=== PATIENT | female | born 1990 | race African-American/Black ===

== ENCOUNTER 2016-09-15 13:05 | Emergency (ER) | payer MEDICAID ==
--- NOTE | 2016-09-15 13:13 | ER Document Report ---
ED Medical Screen (RME) - General Stated Complaint: STOMACH PAIN Notes: 25 yo female c/o n/v/d x 2 days. + headache, + dizziness x 1 week. family members with similar viral symptoms. no fever. no significant PMHx. LMP pt in NAD. abdomen soft and nontender TRAVEL OUTSIDE OF THE [place] IN LAST 30 DAYS: No - Related Data Allergies/Adverse Reactions: No Known Drug Allergies Allergy (Verified 05/02/16 10:21) Past Medical History Pulmonary Medical History: Reports: Hx Asthma Neurological Medical History: Reports: Hx Migraine - Immunizations Hx Diphtheria, Pertussis, Tetanus Vaccination: No
[2016-09-15 13:16] VITALS: BP 121/77
[2016-09-15 14:07] LABS: APPEARANCE,URINE SLIGHTLY-CLOUDY; BILIRUBIN,URINE NEGATIVE (NEGATIVE); GLUCOSE, URINE NEGATIVE (NEGATIVE); KETONES,URINE NEGATIVE (NEGATIVE); LEUKOCYTE ESTERASE,URINE NEGATIVE (NEGATIVE); NITRITE,URINE NEGATIVE (NEGATIVE); PROTEIN,URINE NEGATIVE (NEGATIVE); URINE SPECIFIC GRAVITY 1.021; UROBILINOGEN,URINE NEGATIVE mg/dL (<2.0)
[2016-09-15 14:20] LABS: ABSOLUTE EOSINOPHILS # (AUTO) 0.1 10^3/uL (0.0-0.6); ABSOLUTE LYMPHOCYTES (AUTO) 1.5 10^3/uL (0.5-4.7); ABSOLUTE MONOCYTES (AUTO) 0.5 10^3/uL (0.1-1.4); ABSOLUTE NEUT (AUTO) 3.4 10^3/uL (1.7-8.2); BASOPHILS % (AUTO) 0.5 % (0-2); EOSINOPHILS % (AUTO) 2.3 % (0-6); HEMATOCRIT 41.2 % (36.0-47.0); HGB HCT DIFFERENCE 0.8; LYMPHOCYTES % (AUTO) 27.2 % (13-45); MEAN CORPUSCULAR HEMOGLOBIN 27.8 pg (27.0-33.4); MEAN CORPUSCULAR VOLUME 82 fl (80-97); MONOCYTES % (AUTO) 9.4 % (3-13); RED BLOOD COUNT 5.04 10^6/uL (3.72-5.28); RED CELL DISTRIBUTION WIDTH 13.6 % (11.5-14.0); SEGMENTED NEUTROPHILS % (AUTO) 60.6 % (42-78); WHITE BLOOD COUNT 5.5 10^3/uL (4.0-10.5)
[2016-09-15 14:30] LABS: ALANINE AMINOTRANSFERASE 44 U/L (9-52); ALBUMIN 4.3 g/dL (3.5-5.0); ALKALINE PHOSPHATASE 81 U/L (38-126); ANION GAP 12 (5-19); ASPARTATE AMINO TRANSFERASE 32 U/L (14-36); BILIRUBIN,TOTAL 0.5 mg/dL (0.2-1.3); BLOOD UREA NITROGEN 14 mg/dL (7-20); CARBON DIOXIDE 22 mmol/L (22-30); CHLORIDE 102 mmol/L (98-107); CREATININE RESULT 0.65 mg/dL (0.52-1.25); GLUCOSE 97 mg/dL (75-110); POTASSIUM 4.9 mmol/L (3.6-5.0); SODIUM 135.5 mmol/L (137-145); TOTAL PROTEIN 8.1 g/dL (6.3-8.2)
--- NOTE | 2016-09-15 15:00 | ER Document Report ---
ED General - General Chief Complaint: Flu Symptoms Stated Complaint: STOMACH PAIN Mode of Arrival: Ambulatory Information source: Patient Notes: 25-year-old female history of migraine headaches presents with complaint of headache associated with nausea vomiting. Patient denies any fevers or chills. Denies any earaches sore throat cough congestion. Patient notes she has sensitivity to light. Patient notices similar to her previous migraine headaches. TRAVEL OUTSIDE OF THE [place] IN LAST 30 DAYS: No - HPI Onset: Other Onset/Duration: Persistent Quality of pain: Achy Severity: Mild Pain Level: 1 Associated symptoms: Headache, Nausea, Vomiting Exacerbated by: Denies Relieved by: Denies Similar symptoms previously: Yes Recently seen / treated by doctor: Yes - Related Data Allergies/Adverse Reactions: No Known Drug Allergies Allergy (Verified 05/02/16 10:21) Past Medical History - Social History Smoking Status: Never Smoker Cigarette use (# per day): No Chew tobacco use (# tins/day): No Smoking Education Provided: No Frequency of alcohol use: Social Drug Abuse: None Family History: Reviewed & Not Pertinent Patient has suicidal ideation: No Patient has homicidal ideation: No Pulmonary Medical History: Reports: Hx Asthma Neurological Medical History: Reports: Hx Migraine Renal/ Medical History: Denies: Hx Peritoneal Dialysis - Immunizations Hx Diphtheria, Pertussis, Tetanus Vaccination: No Review of Systems - Review of Systems Notes: REVIEW OF SYSTEMS: CONSTITUTIONAL : Denies fever, chills, or sweats. Denies recent illness. EENT: Denies eye, ear, throat, or mouth pain or symptoms. Denies nasal or sinus congestion or discharge. Denies throat, tongue, or mouth swelling or difficulty swallowing. CARDIOVASCULAR: Denies chest pain. Denies palpitations or racing or irregular heart beat. Denies ankle edema. RESPIRATORY: Denies cough, cold, or chest congestion. Denies shortness of breath, difficulty breathing, or wheezing. GASTROINTESTINAL: Admits to nausea vomiting GENITOURINARY: Denies difficulty urinating, painful urination, burning, frequency, blood in urine, or discharge. FEMALE GENITOURINARY: Denies vaginal bleeding, heavy or abnormal periods, irregular periods. Denies vaginal discharge or odor. MUSCULOSKELETAL: Denies back or neck pain or stiffness. Denies joint pain or swelling. SKIN: Denies rash, lesions or sores. HEMATOLOGIC : Denies easy bruising or bleeding. LYMPHATIC: Denies swollen, enlarged glands. NEUROLOGICAL: Admits to headache PSYCHIATRIC: Denies anxiety or stress. Denies depression, suicidal ideation, or homicidal ideation. ALL OTHER SYSTEMS REVIEWED AND NEGATIVE. Dictation was performed using [employer] voice recognition software PHYSICAL EXAMINATION: GENERAL: Well-appearing, well-nourished and in no acute distress. HEAD: Atraumatic, normocephalic. EYES: Pupils equal round and reactive to light, extraocular movements intact, conjunctiva are normal. ENT: Nares patent, oropharynx clear without exudates. Moist mucous membranes. NECK: Normal range of motion, supple without lymphadenopathy LUNGS: Breath sounds clear to auscultation bilaterally and equal. No wheezes rales or rhonchi. HEART: Regular rate and rhythm without murmurs ABDOMEN: Soft, nontender, nondistended abdomen. No guarding, no rebound. No masses appreciated. Female : deferred Musculoskeletal: Normal range of motion, no pitting or edema. No cyanosis. NEUROLOGICAL: Cranial nerves grossly intact. Normal speech, normal gait. Normal sensory, motor exams finger to nose [id number] are normal PSYCH: Normal mood, normal affect. SKIN: Warm, Dry, normal turgor, no rashes or lesions noted. Physical Exam - Vital signs Vitals: Temp Pulse Resp BP Pulse Ox 98.2 F 98 18 121/77 97 09/15/16 13:12 09/15/16 13:12 09/15/16 13:12 09/15/16 13:12 09/15/16 13:12 Course - Re-evaluation Re-evalutation: 09/15/16 15:09 Physical examination notes no significant abnormality lab works normal. Please the patient has migraine headache which is consistent with her previous history. Patient denies any other complaints at this time. I offered to treat the patient here but she prefers to be discharged home. Discharge instructions and should return precautions have been provided to the patient After performing a Medical Screening Examination, I estimate there is LOW risk for ACUTE GLAUCOMA, TEMPORAL ARTERITIS, MENINGITIS, INCRANIAL HEMORRHAGE, or ISCHEMIC STROKE thus I consider the discharge disposition reasonable. The patient and I have discussed the diagnosis and risks, and we agree with discharging home with close follow-up with the understanding that symptoms and presentations can change. We also discussed returning to the Emergency Department immediately if new or worsening symptoms occur. We have discussed the symptoms which are most concerning (e.g., changing or worsening symptoms, new numbness or weakness, vomiting, fever) that necessitate immediate return. - Vital Signs Vital signs: Temp Pulse Resp BP Pulse Ox 98.2 F 98 18 121/77 97 09/15/16 13:12 09/15/16 13:12 09/15/16 13:12 09/15/16 13:12 09/15/16 13:12 - Laboratory Result Diagrams: 09/15/16 14:00 09/15/16 14:00 Laboratory results interpreted by me: 09/15/16 14:00 Sodium 135.5 L - Diagnostic Test Radiology reviewed: Image reviewed, Reports reviewed Discharge - Discharge Clinical Impression: Migraine headache Qualifiers: Migraine type: with aura Status migrainosus presence: without status migrainosus Intractability: not intractable Qualified Code(s): G43.109 - Migraine with aura, not intractable, without status migrainosus Nausea & vomiting Qualifiers: Vomiting type: unspecified Vomiting Intractability: non-intractable Qualified Code(s): R11.2 - Nausea with vomiting, unspecified Condition: Stable Disposition: HOME, SELF-CARE Instructions: Migraine Headache ([facility]) Additional Instructions: Follow up with your physician tomorrow for further care or return to the ED IMMEDIATELY if symptoms worsen or new concerns occur Prescriptions: Promethazine HCl [Phenergan 25 mg Tablet] 1 - 2 tab PO Q6H PRN #15 tablet PRN Reason:
== END 2016-09-15 15:18 | disposition home or self-care (01) ==
LOC: ER 13:05
DX: G43.109 Migraine with aura, not intractable, without status migrainosus (principal); R11.2 Nausea with vomiting, unspecified; R10.9 Unspecified abdominal pain; R51 Headache
CPT/HCPCS: 36415; 80053; 81001; 81025; 85025; 87804; 99283

== ENCOUNTER 2016-10-27 08:33 | Outpatient (CLI) | payer MEDICAID ==
[2016-10-27 09:17] LABS: APPEARANCE,URINE SLIGHTLY-CLOUDY; BILIRUBIN,URINE NEGATIVE (NEGATIVE); GLUCOSE, URINE NEGATIVE (NEGATIVE); KETONES,URINE NEGATIVE (NEGATIVE); LEUKOCYTE ESTERASE,URINE NEGATIVE (NEGATIVE); NITRITE,URINE NEGATIVE (NEGATIVE); PROTEIN,URINE NEGATIVE (NEGATIVE); UROBILINOGEN,URINE NEGATIVE mg/dL (<2.0)
[2016-10-27 09:33] LABS: URINE BARBITURATES SCREEN NEGATIVE; URINE METHADONE SCREEN NEGATIVE; URINE OPIATES LOW NEGATIVE; URINE PHENCYCLIDINE SCREEN NEGATIVE
--- NOTE | 2016-10-27 10:46 | L&D General Admission ---
General Admit Datetime Report Generated by CPN: 10/27/2016 10:45 INFORMATION Patient Age: 25 (10/27/2016 08:33:QS system process) EDC: 03/10/2017 00:00 (10/27/2016 08:46:Maira Avery, RN) CARE Height (in): 62 (10/27/2016 09:47:QS system process) Height (in): 62 (10/27/2016 09:40:QS system process) ALLERGIES Medication Allergies: No Known Drug Allergies (05/02/2016) (10/27/2016 08:33:QS system process) DEMOGRAPHICS Address: [address] [place] [address] (10/27/2016 08:40:QS system process) Address: [facility] [place] [address] (10/27/2016 08:33:QS system process) Zipcode: [address] (10/27/2016 08:33:QS system process) Home (10/27/2016 08:33:QS system process) SSN: [id number] (10/27/2016 08:33:QS system process) Next of Kin Name: EDIN DEE (10/27/2016 08:33:QS system process) Next of Kin (10/27/2016 08:33:QS system process) Next of Kin Relationship: OR (10/27/2016 08:33:QS system process) Date of : 1990 (10/27/2016 08:33:QS system process) Marital Status: Single (10/27/2016 08:33:QS system process) Sex: Female (10/27/2016 08:33:QS system process) Race: (10/27/2016 08:33:QS system process) Ethnicity: Non- or (10/27/2016 08:33:QS system process) Church: None (10/27/2016 08:33:QS system process)
--- NOTE | 2016-10-27 10:46 | L&D Discharge Summary ---
OB Discharge Summary Datetime Report Generated by CPN: 10/27/2016 10:45 DISCHARGE DIAGNOSIS Diagnosis/Symptoms: Other Diagnoses/Symptoms Other: Not DIET/ACTIVITY/RESTRICTIONS Diet: Regular Activity: Normal Activity TEACHING/INSTRUCTIONS/REFERRALS Instructions Given To: Patient Instructions Understood: Patient Verbalized Understanding; Support Person Verbalized Understanding Referrals: None DISCHARGE INFORMATION Discharged AMA: No Discharge Date/Time: 10/27/2016 10:26 Discharged To: Home Discharge Provider Name: Dr. Kramer Accompanied By: self Discharge Method: Ambulatory Condition: Stable FOLLOW UP INFORMATION Follow Up With: Other-Annotate Comments: Pt. transferred to ED for evaluation of back and neck pain.
--- NOTE | 2016-10-27 10:46 | L&D Admission Assessment ---
LD ADM ASMT Datetime Report Generated by CPN: 10/27/2016 10:45 PATIENT ASSESSMENT Assessment Type: Admission Assessment (10/27/2016 08:58:Amira AveryNANCY) WEIGHT Weight (lb): 141 (10/27/2016 09:47:QS system process) Weight (lb): 141 (10/27/2016 09:40:QS system process) Weight (kg): 64.1 (10/27/2016 09:47:QS system process) Weight (kg): 64.1 (10/27/2016 09:40:QS system process) BMI: 25.8 (10/27/2016 09:47:QS system process) PAIN Pain Scale: 0 (10/27/2016 09:32:Amira Avery RN) Pain Scale: 0 (10/27/2016 08:58:Amira Avery RN) Pain Presence: None/Denies (10/27/2016 09:32:Amira Avery RN) Pain Presence: None/Denies (10/27/2016 08:58:Amira Avery RN) Pain Type: N/A (10/27/2016 09:32:Amira Avery RN) Pain Type: N/A (10/27/2016 08:58:Amira Avery RN) Pain Goal: 0 (10/27/2016 08:58:Amira Avery RN) NEURO Level of Consciousness: Fully Conscious (10/27/2016 08:58:Amira Avery RN) DTR's/Clonus: DTRs Absent (10/27/2016 08:58:Amira Avery RN) Headache: Denies (10/27/2016 08:58:Amira Avery RN) Dizziness: No (10/27/2016 08:58:Amira Avery RN) Blurred Vision: No (10/27/2016 08:58:Amira Avery RN) Extremity Numbness/Tingling : Right Arm; Left Arm; Right Leg; Left Leg (Annotations: Tingling and swelling in face at 2am) (10/27/2016 08:58:Amira Avery RN) Extremity Movement: Full Range of Motion (10/27/2016 08:58:Amira Avery RN) CARDIOVASCULAR Heart Rhythm: Regular (10/27/2016 08:58:Amira Avery RN) Nailbeds: [place] (10/27/2016 08:58:Amira Avery RN) Capillary Refill: Less than 3 Seconds (10/27/2016 08:58:Amira Avery RN) Lower Extremities Edema: None (10/27/2016 08:58:Amira Avery RN) Lower Extremities Edema Degree: None (10/27/2016 08:58:Amira Avery RN) Upper Extremities Edema: None (10/27/2016 08:58:Amira Avery RN) Upper Extremities Edema Degree: None (10/27/2016 08:58:Amira Avery RN) Facial Edema: None (Annotations: Stated her face was swollen this morning) (10/27/2016 08:58:Amira Avery RN) Alissa's Sign Left Leg: Negative (10/27/2016 08:58:Amira Avery RN) Alissa's Sign Right Leg: Negative (10/27/2016 08:58:Amira Avery RN) DVT RISK ASSESSMENT DVT Risk Age: Age less than 41 years (10/27/2016 08:58:Amira Avery RN) DVT Risk BMI: BMI<31 (10/27/2016 08:58:Amira Avery RN) DVT Risk Surgery: None Applicable (10/27/2016 08:58:Amira Avery RN) DVT Risk Other: None Applicable (10/27/2016 08:58:Amira Avery RN) DVT Risk Total: 0 (10/27/2016 08:58:QS system process) DVT Risk Text: Low Risk (<10%) No specific measures, early ambulation (10/27/2016 08:58:QS system process) RESPIRATORY Respiratory Effort: Unlabored; Regular Rhythm; Equal Expansion (10/27/2016 08:58:Amira Avery RN) Breath Sounds, Left: Clear and Equal (10/27/2016 08:58:Amira Avery RN) Breath Sounds, Right: Clear and Equal (10/27/2016 08:58:Amira Avery, RN) Cough Productivity: None (10/27/2016 08:58:Amira Avery RN) GASTROINTESTINAL Nausea/Vomiting: Hx of Nausea/Vomiting (10/27/2016 08:58:Amira Avery RN) Bowel Sounds: Normoactive (10/27/2016 08:58:Amira Avery RN) RUQ Epigastric Pain: Denies (10/27/2016 08:58:Amira Avery RN) Bowel Patterns: Constipation (10/27/2016 08:58:Amira Avery RN) Hemorrhoids: None (10/27/2016 08:58:Amira Avery RN) Diet Type: Regular diet (10/27/2016 08:58:Amira Avery RN) Last Meal: 10/26/2016 10:30 (10/27/2016 08:58:Amira Avery RN) GENITOURINARY Bladder: Nondistended (10/27/2016 08:58:Amira Avery RN) Frequency of Urination: No (10/27/2016 08:58:Amira Avery RN) Urination Burning: No (10/27/2016 08:58:Amira Avery RN) CVA Tenderness: No (10/27/2016 08:58:Amira Avery RN) Vaginal Bleeding: Bleeding like a period last week. Saturated 7 pads a day (10/27/2016 08:58:Amira Avery RN) Vaginal Discharge Amount: None (10/27/2016 08:58:Amira Avery RN) Vaginal Discharge Color: N/A (10/27/2016 08:58:Amira Avery RN) Vaginal Discharge Odor: Non-Odorous (10/27/2016 08:58:Amira Avery RN) Vaginal Discharge Character: None (10/27/2016 08:58:Amira Avery RN) INTEGUMENTARY Skin Color: Normal for Race (10/27/2016 08:58:Amira Avery RN) Skin Temperature: Warm (10/27/2016 08:58:Amira Avery RN) Skin Moisture: Dry (10/27/2016 08:58:Amira Avery RN) SUPPORT Family Support: Family not supportive (10/27/2016 08:58:Amira Avery RN) Emotional State: Anxious (10/27/2016 08:58:Amira Avery RN) SAFETY Call [place] Within Reach: Yes (10/27/2016 08:58:Amira Avery RN) Side Rails Up: Yes (10/27/2016 08:58:Amira Avery RN) Bed Wheels Locked: Yes (10/27/2016 08:58:Amira Avery RN) Arm Bands Present: Yes (10/27/2016 08:58:Amira Avery RN) Isolation: [place] (10/27/2016 08:58:Amira Avery RN) FALL SCREEN Fall Risk History of Falling: (0) No (10/27/2016 08:58:Amira Avery RN) Fall Risk Secondary Diagnosis: (0) No (10/27/2016 08:58:Amira Avery RN) Fall Risk Ambulatory Aid: (0) None/Bedrest/Wheelchair/Nurse Assist (10/27/2016 08:58:Amira Avery RN) Fall Risk IV Therapy: (0) No (10/27/2016 08:58:Amira Avery RN) Fall Risk Gait: (0) Normal/Bedrest/Immobile (10/27/2016 08:58:Amira Avery RN) Fall Risk Mental Status: (0) Oriented to Own Ability (10/27/2016 08:58:Amira Avery RN) Fall Risk Score: 0 (10/27/2016 08:58:QS system process) Fall Risk Score Definition: No Risk: No action required (10/27/2016 08:58:QS system process) ADDITIONAL COMMENTS Assessment Flag: Admission Assessment (10/27/2016 08:58:QS system process)
--- NOTE | 2016-10-27 10:46 | Antepartum Discharge Summary ---
Antepartum DC Datetime Report Generated by CPN: 10/27/2016 10:45 DIET/ACTIVITY/RESTRICTIONS Diet: Regular (10/27/2016 10:30:Amira Avery RN) Activity: Normal Activity (10/27/2016 10:30:Amira Avery, RN) TEACHING/INSTRUCTIONS/REFERRALS Instructions Given To: Patient (10/27/2016 10:30:Amira Avery RN) Instructions Understood: Patient Verbalized Understanding; Support Person Verbalized Understanding (10/27/2016 10:30:Amira Avery RN) Referrals: None (10/27/2016 10:30:Amira Avery RN) DISCHARGE INFORMATION Discharged AMA: No (10/27/2016 10:30:Amira Avery RN) Discharge Date/Time: 10/27/2016 10:26 (10/27/2016 10:30:Amira Avery RN) Discharged To: Home (10/27/2016 10:30:Amira Avery RN) Discharge Provider Name: Dr. Kramer (10/27/2016 10:30:Amira Avery RN) Accompanied By: self (10/27/2016 10:30:Amira Avery RN) Discharge Method: Ambulatory (10/27/2016 10:30:Amira Avery RN) Condition: Stable (10/27/2016 10:30:Amira Avery RN) FOLLOW UP INFORMATION Follow Up With: Other-Annotate (10/27/2016 10:30:Amira Avery RN) Comments: Pt. transferred to ED for evaluation of back and neck pain. (10/27/2016 10:30:Amira Avery RN)
--- NOTE | 2016-10-27 10:46 | L&D Current Admission ---
Current Admit Datetime Report Generated by CPN: 10/27/2016 10:45 ADMISSION INFORMATION Chief Complaint: Vaginal Bleeding (10/27/2016 08:58:Amira Avery RN)
--- NOTE | 2016-10-27 12:28 | L&D Discharge Summary ---
OB Discharge Summary Datetime Report Generated by CPN: 10/27/2016 12:27 DISCHARGE DIAGNOSIS Diagnosis/Symptoms: Other Diagnoses/Symptoms Other: Not DIET/ACTIVITY/RESTRICTIONS Diet: Regular Activity: Normal Activity TEACHING/INSTRUCTIONS/REFERRALS Instructions Given To: Patient Instructions Understood: Patient Verbalized Understanding; Support Person Verbalized Understanding Referrals: None DISCHARGE INFORMATION Discharged AMA: No Discharge Date/Time: 10/27/2016 10:26 Discharged To: Home Discharge Provider Name: Dr. Kramer Accompanied By: self Discharge Method: Ambulatory Condition: Stable FOLLOW UP INFORMATION Follow Up With: Other-Annotate Comments: Pt. transferred to ED for evaluation of back and neck pain.
--- NOTE | 2016-10-27 16:45 | L&D Current Admission ---
Current Admit Datetime Report Generated by CPN: 10/27/2016 16:45 ADMISSION INFORMATION Chief Complaint: Vaginal Bleeding (10/27/2016 08:58:Amira Avery RN)
--- NOTE | 2016-10-27 16:45 | L&D Discharge Summary ---
OB Discharge Summary Datetime Report Generated by CPN: 10/27/2016 16:45 DISCHARGE DIAGNOSIS Diagnosis/Symptoms: Other Diagnoses/Symptoms Other: Not Gestation: 20.6 DIET/ACTIVITY/RESTRICTIONS Diet: Regular Activity: Normal Activity TEACHING/INSTRUCTIONS/REFERRALS Instructions Given To: Patient Instructions Understood: Patient Verbalized Understanding; Support Person Verbalized Understanding Referrals: None DISCHARGE INFORMATION Discharged AMA: No Discharge Date/Time: 10/27/2016 10:26 Discharged To: Home Discharge Provider Name: Dr. Kramer Accompanied By: self Discharge Method: Ambulatory Condition: Stable FOLLOW UP INFORMATION Follow Up With: Other-Annotate Comments: Pt. transferred to ED for evaluation of back and neck pain.
--- NOTE | 2016-10-27 16:45 | Antepartum Discharge Summary ---
Antepartum DC Datetime Report Generated by CPN: 10/27/2016 16:45 DIET/ACTIVITY/RESTRICTIONS Diet: Regular (10/27/2016 10:30:Amira Avery RN) Activity: Normal Activity (10/27/2016 10:30:Amira Avery, RN) TEACHING/INSTRUCTIONS/REFERRALS Instructions Given To: Patient (10/27/2016 10:30:Amira Avery RN) Instructions Understood: Patient Verbalized Understanding; Support Person Verbalized Understanding (10/27/2016 10:30:Amira Avery RN) Referrals: None (10/27/2016 10:30:Amira Avery RN) DISCHARGE INFORMATION Discharged AMA: No (10/27/2016 10:30:Amira Avery RN) Discharge Date/Time: 10/27/2016 10:26 (10/27/2016 10:30:Amira Avery RN) Discharged To: Home (10/27/2016 10:30:Amira Avery RN) Discharge Provider Name: Dr. Kramer (10/27/2016 10:30:Amira Avery RN) Accompanied By: self (10/27/2016 10:30:Amira Avery RN) Discharge Method: Ambulatory (10/27/2016 10:30:Amira Avery RN) Condition: Stable (10/27/2016 10:30:Amira Avery RN) FOLLOW UP INFORMATION Follow Up With: Other-Annotate (10/27/2016 10:30:Amira Avery RN) Comments: Pt. transferred to ED for evaluation of back and neck pain. (10/27/2016 10:30:Amira Avery RN)
--- NOTE | 2016-10-27 16:45 | L&D General Admission ---
General Admit Datetime Report Generated by CPN: 10/27/2016 16:45 INFORMATION Patient Age: 25 (10/27/2016 08:33:QS system process) EDC: 03/10/2017 00:00 (10/27/2016 08:46:Amira Avery, RN) CARE Height (in): 62 (10/27/2016 09:47:QS system process) Height (in): 62 (10/27/2016 09:40:QS system process) ALLERGIES Medication Allergies: No Known Drug Allergies (05/02/2016) (10/27/2016 08:33:QS system process) DEMOGRAPHICS Address: [address] [place] [address] (10/27/2016 08:40:QS system process) Address: [facility] [place] [place] [address] (10/27/2016 08:33:QS system process) Zipcode: [address] (10/27/2016 08:33:QS system process) Home (10/27/2016 08:33:QS system process) SSN: [id number] (10/27/2016 08:33:QS system process) Next of Kin Name: EDIN DEE (10/27/2016 08:33:QS system process) Next of Kin (10/27/2016 08:33:QS system process) Next of Kin Relationship: OR (10/27/2016 08:33:QS system process) Date of : 1990 (10/27/2016 08:33:QS system process) Marital Status: Single (10/27/2016 08:33:QS system process) Sex: Female (10/27/2016 08:33:QS system process) Race: (10/27/2016 08:33:QS system process) Ethnicity: Non- or (10/27/2016 08:33:QS system process) Scientology: None (10/27/2016 08:33:QS system process)
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
--- NOTE | 2016-10-27 22:45 | Antepartum Discharge Summary ---
Antepartum DC Datetime Report Generated by CPN: 10/27/2016 22:45 DIET/ACTIVITY/RESTRICTIONS Diet: Regular (10/27/2016 10:30:Amira Avery RN) Activity: Normal Activity (10/27/2016 10:30:Amira Avery, RN) TEACHING/INSTRUCTIONS/REFERRALS Instructions Given To: Patient (10/27/2016 10:30:Amira Avery RN) Instructions Understood: Patient Verbalized Understanding; Support Person Verbalized Understanding (10/27/2016 10:30:mAira Avery RN) Referrals: None (10/27/2016 10:30:Amira Avery RN) DISCHARGE INFORMATION Discharged AMA: No (10/27/2016 10:30:Amira Avery RN) Discharge Date/Time: 10/27/2016 10:26 (10/27/2016 10:30:Amira Avery RN) Discharged To: Home (10/27/2016 10:30:Amira Avery RN) Discharge Provider Name: Dr. Kramer (10/27/2016 10:30:Amira Avery RN) Accompanied By: self (10/27/2016 10:30:Amira Avery RN) Discharge Method: Ambulatory (10/27/2016 10:30:Amira Avery RN) Condition: Stable (10/27/2016 10:30:Amira Avery RN) FOLLOW UP INFORMATION Follow Up With: Other-Annotate (10/27/2016 10:30:Amira Avery RN) Comments: Pt. transferred to ED for evaluation of back and neck pain. (10/27/2016 10:30:Amira Avery RN)
--- NOTE | 2016-10-27 22:45 | L&D Flow Sheet ---
LD Flowsheet Datetime Report Generated by CPN: 10/27/2016 22:45 Datetime: 10/27/2016 10:08 Communication LaborFlag: Antepartum (QS system process) Datetime: 10/27/2016 09:32 Communication LaborFlag: Antepartum (QS system process) Datetime: 10/27/2016 09:06 Communication LaborFlag: Antepartum (QS system process) Datetime: 10/27/2016 08:58 Communication LaborFlag: Antepartum (QS system process)
--- NOTE | 2016-10-27 22:46 | L&D General Admission ---
General Admit Datetime Report Generated by CPN: 10/27/2016 22:45 INFORMATION Patient Age: 25 (10/27/2016 08:33:QS system process) EDC: 03/10/2017 00:00 (10/27/2016 08:46:Amira Aevry, RN) CARE Height (in): 62 (10/27/2016 09:47:QS system process) Height (in): 62 (10/27/2016 09:40:QS system process) ALLERGIES Medication Allergies: No Known Drug Allergies (05/02/2016) (10/27/2016 08:33:QS system process) DEMOGRAPHICS Address: [address] [place] [address] (10/27/2016 08:40:QS system process) Address: [facility] [place] [address] (10/27/2016 08:33:QS system process) Zipcode: [address] (10/27/2016 08:33:QS system process) Home (10/27/2016 08:33:QS system process) SSN: [id number] (10/27/2016 08:33:QS system process) Next of Kin Name: EDIN DEE (10/27/2016 08:33:QS system process) Next of Kin (10/27/2016 08:33:QS system process) Next of Kin Relationship: OR (10/27/2016 08:33:QS system process) Date of : 1990 (10/27/2016 08:33:QS system process) Marital Status: Single (10/27/2016 08:33:QS system process) Sex: Female (10/27/2016 08:33:QS system process) Race: (10/27/2016 08:33:QS system process) Ethnicity: Non- or (10/27/2016 08:33:QS system process) Orthodox: None (10/27/2016 08:33:QS system process)
--- NOTE | 2016-10-27 22:46 | L&D Discharge Summary ---
OB Discharge Summary Datetime Report Generated by CPN: 10/27/2016 22:45 DISCHARGE DIAGNOSIS Diagnosis/Symptoms: Other Diagnoses/Symptoms Other: Not Gestation: 20.6 DIET/ACTIVITY/RESTRICTIONS Diet: Regular Activity: Normal Activity TEACHING/INSTRUCTIONS/REFERRALS Instructions Given To: Patient Instructions Understood: Patient Verbalized Understanding; Support Person Verbalized Understanding Referrals: None DISCHARGE INFORMATION Discharged AMA: No Discharge Date/Time: 10/27/2016 10:26 Discharged To: Home Discharge Provider Name: Dr. Kramer Accompanied By: self Discharge Method: Ambulatory Condition: Stable FOLLOW UP INFORMATION Follow Up With: Other-Annotate Comments: Pt. transferred to ED for evaluation of back and neck pain.
--- NOTE | 2016-10-27 22:46 | L&D Current Admission ---
Current Admit Datetime Report Generated by CPN: 10/27/2016 22:45 ADMISSION INFORMATION Chief Complaint: Vaginal Bleeding (10/27/2016 08:58:Amira Avery RN)
--- NOTE | 2016-10-28 04:46 | L&D Discharge Summary ---
OB Discharge Summary Datetime Report Generated by CPN: 10/28/2016 04:45 DISCHARGE DIAGNOSIS Diagnosis/Symptoms: Other Diagnoses/Symptoms Other: Not Gestation: 20.6 DIET/ACTIVITY/RESTRICTIONS Diet: Regular Activity: Normal Activity TEACHING/INSTRUCTIONS/REFERRALS Instructions Given To: Patient Instructions Understood: Patient Verbalized Understanding; Support Person Verbalized Understanding Referrals: None DISCHARGE INFORMATION Discharged AMA: No Discharge Date/Time: 10/27/2016 10:26 Discharged To: Home Discharge Provider Name: Dr. Kramer Accompanied By: self Discharge Method: Ambulatory Condition: Stable FOLLOW UP INFORMATION Follow Up With: Other-Annotate Comments: Pt. transferred to ED for evaluation of back and neck pain.
--- NOTE | 2016-10-28 04:46 | L&D Current Admission ---
Current Admit Datetime Report Generated by CPN: 10/28/2016 04:45 ADMISSION INFORMATION Chief Complaint: Vaginal Bleeding (10/27/2016 08:58:Amira Avery RN)
--- NOTE | 2016-10-28 04:46 | L&D General Admission ---
General Admit Datetime Report Generated by CPN: 10/28/2016 04:45 INFORMATION Patient Age: 25 (10/27/2016 08:33:QS system process) EDC: 03/10/2017 00:00 (10/27/2016 08:46:Amira Avery, RN) CARE Height (in): 62 (10/27/2016 09:47:QS system process) Height (in): 62 (10/27/2016 09:40:QS system process) ALLERGIES Medication Allergies: No Known Drug Allergies (05/02/2016) (10/27/2016 08:33:QS system process) DEMOGRAPHICS Address: [address] [place] [address] (10/27/2016 08:40:QS system process) Address: [facility] [place] [address] (10/27/2016 08:33:QS system process) Zipcode: [address] (10/27/2016 08:33:QS system process) Home (10/27/2016 08:33:QS system process) SSN: [id number] (10/27/2016 08:33:QS system process) Next of Kin Name: EDIN DEE (10/27/2016 08:33:QS system process) Next of Kin (10/27/2016 08:33:QS system process) Next of Kin Relationship: OR (10/27/2016 08:33:QS system process) Date of : 1990 (10/27/2016 08:33:QS system process) Marital Status: Single (10/27/2016 08:33:QS system process) Sex: Female (10/27/2016 08:33:QS system process) Race: (10/27/2016 08:33:QS system process) Ethnicity: Non- or (10/27/2016 08:33:QS system process) Buddhist: None (10/27/2016 08:33:QS system process)
--- NOTE | 2016-10-28 04:46 | Antepartum Discharge Summary ---
Antepartum DC Datetime Report Generated by CPN: 10/28/2016 04:45 DIET/ACTIVITY/RESTRICTIONS Diet: Regular (10/27/2016 10:30:Amira Avery RN) Activity: Normal Activity (10/27/2016 10:30:Amira Avery, RN) TEACHING/INSTRUCTIONS/REFERRALS Instructions Given To: Patient (10/27/2016 10:30:Amira Avery RN) Instructions Understood: Patient Verbalized Understanding; Support Person Verbalized Understanding (10/27/2016 10:30:Amira Avery RN) Referrals: None (10/27/2016 10:30:Amira Avery RN) DISCHARGE INFORMATION Discharged AMA: No (10/27/2016 10:30:Amira Avery RN) Discharge Date/Time: 10/27/2016 10:26 (10/27/2016 10:30:Amira Avery RN) Discharged To: Home (10/27/2016 10:30:Amira Avery RN) Discharge Provider Name: Dr. Kramer (10/27/2016 10:30:Amira Avery RN) Accompanied By: self (10/27/2016 10:30:Amira Avery RN) Discharge Method: Ambulatory (10/27/2016 10:30:Amira Avery RN) Condition: Stable (10/27/2016 10:30:Amira Avery RN) FOLLOW UP INFORMATION Follow Up With: Other-Annotate (10/27/2016 10:30:Amira Avery RN) Comments: Pt. transferred to ED for evaluation of back and neck pain. (10/27/2016 10:30:Amira Avery RN)
--- NOTE | 2016-10-28 10:46 | L&D Discharge Summary ---
OB Discharge Summary Datetime Report Generated by CPN: 10/28/2016 10:45 DISCHARGE DIAGNOSIS Diagnosis/Symptoms: Other Diagnoses/Symptoms Other: Not Gestation: 20.6 DIET/ACTIVITY/RESTRICTIONS Diet: Regular Activity: Normal Activity TEACHING/INSTRUCTIONS/REFERRALS Instructions Given To: Patient Instructions Understood: Patient Verbalized Understanding; Support Person Verbalized Understanding Referrals: None DISCHARGE INFORMATION Discharged AMA: No Discharge Date/Time: 10/27/2016 10:26 Discharged To: Home Discharge Provider Name: Dr. Kramer Accompanied By: self Discharge Method: Ambulatory Condition: Stable FOLLOW UP INFORMATION Follow Up With: Other-Annotate Comments: Pt. transferred to ED for evaluation of back and neck pain.
--- NOTE | 2016-10-28 16:46 | L&D Discharge Summary ---
OB Discharge Summary Datetime Report Generated by CPN: 10/28/2016 16:45 DISCHARGE DIAGNOSIS Diagnosis/Symptoms: Other Diagnoses/Symptoms Other: Not Gestation: 20.6 DIET/ACTIVITY/RESTRICTIONS Diet: Regular Activity: Normal Activity TEACHING/INSTRUCTIONS/REFERRALS Instructions Given To: Patient Instructions Understood: Patient Verbalized Understanding; Support Person Verbalized Understanding Referrals: None DISCHARGE INFORMATION Discharged AMA: No Discharge Date/Time: 10/27/2016 10:26 Discharged To: Home Discharge Provider Name: Dr. Kramer Accompanied By: self Discharge Method: Ambulatory Condition: Stable FOLLOW UP INFORMATION Follow Up With: Other-Annotate Comments: Pt. transferred to ED for evaluation of back and neck pain.
--- NOTE | 2016-10-28 22:46 | L&D Discharge Summary ---
OB Discharge Summary Datetime Report Generated by CPN: 10/28/2016 22:45 DISCHARGE DIAGNOSIS Diagnosis/Symptoms: Other Diagnoses/Symptoms Other: Not Gestation: 20.6 DIET/ACTIVITY/RESTRICTIONS Diet: Regular Activity: Normal Activity TEACHING/INSTRUCTIONS/REFERRALS Instructions Given To: Patient Instructions Understood: Patient Verbalized Understanding; Support Person Verbalized Understanding Referrals: None DISCHARGE INFORMATION Discharged AMA: No Discharge Date/Time: 10/27/2016 10:26 Discharged To: Home Discharge Provider Name: Dr. Kramer Accompanied By: self Discharge Method: Ambulatory Condition: Stable FOLLOW UP INFORMATION Follow Up With: Other-Annotate Comments: Pt. transferred to ED for evaluation of back and neck pain.
--- NOTE | 2016-10-29 04:46 | L&D Discharge Summary ---
OB Discharge Summary Datetime Report Generated by CPN: 10/29/2016 04:45 DISCHARGE DIAGNOSIS Diagnosis/Symptoms: Other Diagnoses/Symptoms Other: Not Gestation: 20.6 DIET/ACTIVITY/RESTRICTIONS Diet: Regular Activity: Normal Activity TEACHING/INSTRUCTIONS/REFERRALS Instructions Given To: Patient Instructions Understood: Patient Verbalized Understanding; Support Person Verbalized Understanding Referrals: None DISCHARGE INFORMATION Discharged AMA: No Discharge Date/Time: 10/27/2016 10:26 Discharged To: Home Discharge Provider Name: Dr. Kramer Accompanied By: self Discharge Method: Ambulatory Condition: Stable FOLLOW UP INFORMATION Follow Up With: Other-Annotate Comments: Pt. transferred to ED for evaluation of back and neck pain.
--- NOTE | 2016-10-29 10:46 | L&D Discharge Summary ---
OB Discharge Summary Datetime Report Generated by CPN: 10/29/2016 10:45 DISCHARGE DIAGNOSIS Diagnosis/Symptoms: Other Diagnoses/Symptoms Other: Not Gestation: 20.6 DIET/ACTIVITY/RESTRICTIONS Diet: Regular Activity: Normal Activity TEACHING/INSTRUCTIONS/REFERRALS Instructions Given To: Patient Instructions Understood: Patient Verbalized Understanding; Support Person Verbalized Understanding Referrals: None DISCHARGE INFORMATION Discharged AMA: No Discharge Date/Time: 10/27/2016 10:26 Discharged To: Home Discharge Provider Name: Dr. Kramer Accompanied By: self Discharge Method: Ambulatory Condition: Stable FOLLOW UP INFORMATION Follow Up With: Other-Annotate Comments: Pt. transferred to ED for evaluation of back and neck pain.
--- NOTE | 2016-10-29 16:46 | L&D Discharge Summary ---
OB Discharge Summary Datetime Report Generated by CPN: 10/29/2016 16:45 DISCHARGE DIAGNOSIS Diagnosis/Symptoms: Other Diagnoses/Symptoms Other: Not Gestation: 20.6 DIET/ACTIVITY/RESTRICTIONS Diet: Regular Activity: Normal Activity TEACHING/INSTRUCTIONS/REFERRALS Instructions Given To: Patient Instructions Understood: Patient Verbalized Understanding; Support Person Verbalized Understanding Referrals: None DISCHARGE INFORMATION Discharged AMA: No Discharge Date/Time: 10/27/2016 10:26 Discharged To: Home Discharge Provider Name: Dr. Kramer Accompanied By: self Discharge Method: Ambulatory Condition: Stable FOLLOW UP INFORMATION Follow Up With: Other-Annotate Comments: Pt. transferred to ED for evaluation of back and neck pain.
--- NOTE | 2016-10-29 22:46 | L&D Discharge Summary ---
OB Discharge Summary Datetime Report Generated by CPN: 10/29/2016 22:45 DISCHARGE DIAGNOSIS Diagnosis/Symptoms: Other Diagnoses/Symptoms Other: Not Gestation: 20.6 DIET/ACTIVITY/RESTRICTIONS Diet: Regular Activity: Normal Activity TEACHING/INSTRUCTIONS/REFERRALS Instructions Given To: Patient Instructions Understood: Patient Verbalized Understanding; Support Person Verbalized Understanding Referrals: None DISCHARGE INFORMATION Discharged AMA: No Discharge Date/Time: 10/27/2016 10:26 Discharged To: Home Discharge Provider Name: Dr. Kramer Accompanied By: self Discharge Method: Ambulatory Condition: Stable FOLLOW UP INFORMATION Follow Up With: Other-Annotate Comments: Pt. transferred to ED for evaluation of back and neck pain.
--- NOTE | 2016-10-30 04:46 | L&D Discharge Summary ---
OB Discharge Summary Datetime Report Generated by CPN: 10/30/2016 04:45 DISCHARGE DIAGNOSIS Diagnosis/Symptoms: Other Diagnoses/Symptoms Other: Not Gestation: 20.6 DIET/ACTIVITY/RESTRICTIONS Diet: Regular Activity: Normal Activity TEACHING/INSTRUCTIONS/REFERRALS Instructions Given To: Patient Instructions Understood: Patient Verbalized Understanding; Support Person Verbalized Understanding Referrals: None DISCHARGE INFORMATION Discharged AMA: No Discharge Date/Time: 10/27/2016 10:26 Discharged To: Home Discharge Provider Name: Dr. Kramer Accompanied By: self Discharge Method: Ambulatory Condition: Stable FOLLOW UP INFORMATION Follow Up With: Other-Annotate Comments: Pt. transferred to ED for evaluation of back and neck pain.
--- NOTE | 2016-10-30 10:46 | L&D Discharge Summary ---
OB Discharge Summary Datetime Report Generated by CPN: 10/30/2016 10:45 DISCHARGE DIAGNOSIS Diagnosis/Symptoms: Other Diagnoses/Symptoms Other: Not Gestation: 20.6 DIET/ACTIVITY/RESTRICTIONS Diet: Regular Activity: Normal Activity TEACHING/INSTRUCTIONS/REFERRALS Instructions Given To: Patient Instructions Understood: Patient Verbalized Understanding; Support Person Verbalized Understanding Referrals: None DISCHARGE INFORMATION Discharged AMA: No Discharge Date/Time: 10/27/2016 10:26 Discharged To: Home Discharge Provider Name: Dr. Kramer Accompanied By: self Discharge Method: Ambulatory Condition: Stable FOLLOW UP INFORMATION Follow Up With: Other-Annotate Comments: Pt. transferred to ED for evaluation of back and neck pain.
--- NOTE | 2016-10-30 16:46 | L&D Discharge Summary ---
OB Discharge Summary Datetime Report Generated by CPN: 10/30/2016 16:45 DISCHARGE DIAGNOSIS Diagnosis/Symptoms: Other Diagnoses/Symptoms Other: Not Gestation: 20.6 DIET/ACTIVITY/RESTRICTIONS Diet: Regular Activity: Normal Activity TEACHING/INSTRUCTIONS/REFERRALS Instructions Given To: Patient Instructions Understood: Patient Verbalized Understanding; Support Person Verbalized Understanding Referrals: None DISCHARGE INFORMATION Discharged AMA: No Discharge Date/Time: 10/27/2016 10:26 Discharged To: Home Discharge Provider Name: Dr. Kramer Accompanied By: self Discharge Method: Ambulatory Condition: Stable FOLLOW UP INFORMATION Follow Up With: Other-Annotate Comments: Pt. transferred to ED for evaluation of back and neck pain.
--- NOTE | 2016-10-30 22:46 | L&D Discharge Summary ---
OB Discharge Summary Datetime Report Generated by CPN: 10/30/2016 22:45 DISCHARGE DIAGNOSIS Diagnosis/Symptoms: Other Diagnoses/Symptoms Other: Not Gestation: 20.6 DIET/ACTIVITY/RESTRICTIONS Diet: Regular Activity: Normal Activity TEACHING/INSTRUCTIONS/REFERRALS Instructions Given To: Patient Instructions Understood: Patient Verbalized Understanding; Support Person Verbalized Understanding Referrals: None DISCHARGE INFORMATION Discharged AMA: No Discharge Date/Time: 10/27/2016 10:26 Discharged To: Home Discharge Provider Name: Dr. Kramer Accompanied By: self Discharge Method: Ambulatory Condition: Stable FOLLOW UP INFORMATION Follow Up With: Other-Annotate Comments: Pt. transferred to ED for evaluation of back and neck pain.
--- NOTE | 2016-10-31 04:46 | L&D Discharge Summary ---
OB Discharge Summary Datetime Report Generated by CPN: 10/31/2016 04:45 DISCHARGE DIAGNOSIS Diagnosis/Symptoms: Other Diagnoses/Symptoms Other: Not Gestation: 20.6 DIET/ACTIVITY/RESTRICTIONS Diet: Regular Activity: Normal Activity TEACHING/INSTRUCTIONS/REFERRALS Instructions Given To: Patient Instructions Understood: Patient Verbalized Understanding; Support Person Verbalized Understanding Referrals: None DISCHARGE INFORMATION Discharged AMA: No Discharge Date/Time: 10/27/2016 10:26 Discharged To: Home Discharge Provider Name: Dr. Kramer Accompanied By: self Discharge Method: Ambulatory Condition: Stable FOLLOW UP INFORMATION Follow Up With: Other-Annotate Comments: Pt. transferred to ED for evaluation of back and neck pain.
--- NOTE | 2016-10-31 10:46 | L&D Discharge Summary ---
OB Discharge Summary Datetime Report Generated by CPN: 10/31/2016 10:45 DISCHARGE DIAGNOSIS Diagnosis/Symptoms: Other Diagnoses/Symptoms Other: Not Gestation: 20.6 DIET/ACTIVITY/RESTRICTIONS Diet: Regular Activity: Normal Activity TEACHING/INSTRUCTIONS/REFERRALS Instructions Given To: Patient Instructions Understood: Patient Verbalized Understanding; Support Person Verbalized Understanding Referrals: None DISCHARGE INFORMATION Discharged AMA: No Discharge Date/Time: 10/27/2016 10:26 Discharged To: Home Discharge Provider Name: Dr. Kramer Accompanied By: self Discharge Method: Ambulatory Condition: Stable FOLLOW UP INFORMATION Follow Up With: Other-Annotate Comments: Pt. transferred to ED for evaluation of back and neck pain.
--- NOTE | 2016-10-31 16:46 | L&D Discharge Summary ---
OB Discharge Summary Datetime Report Generated by CPN: 10/31/2016 16:45 DISCHARGE DIAGNOSIS Diagnosis/Symptoms: Other Diagnoses/Symptoms Other: Not Gestation: 20.6 DIET/ACTIVITY/RESTRICTIONS Diet: Regular Activity: Normal Activity TEACHING/INSTRUCTIONS/REFERRALS Instructions Given To: Patient Instructions Understood: Patient Verbalized Understanding; Support Person Verbalized Understanding Referrals: None DISCHARGE INFORMATION Discharged AMA: No Discharge Date/Time: 10/27/2016 10:26 Discharged To: Home Discharge Provider Name: Dr. Kramer Accompanied By: self Discharge Method: Ambulatory Condition: Stable FOLLOW UP INFORMATION Follow Up With: Other-Annotate Comments: Pt. transferred to ED for evaluation of back and neck pain.
--- NOTE | 2016-10-31 22:46 | L&D Discharge Summary ---
OB Discharge Summary Datetime Report Generated by CPN: 10/31/2016 22:45 DISCHARGE DIAGNOSIS Diagnosis/Symptoms: Other Diagnoses/Symptoms Other: Not Gestation: 20.6 DIET/ACTIVITY/RESTRICTIONS Diet: Regular Activity: Normal Activity TEACHING/INSTRUCTIONS/REFERRALS Instructions Given To: Patient Instructions Understood: Patient Verbalized Understanding; Support Person Verbalized Understanding Referrals: None DISCHARGE INFORMATION Discharged AMA: No Discharge Date/Time: 10/27/2016 10:26 Discharged To: Home Discharge Provider Name: Dr. Kramer Accompanied By: self Discharge Method: Ambulatory Condition: Stable FOLLOW UP INFORMATION Follow Up With: Other-Annotate Comments: Pt. transferred to ED for evaluation of back and neck pain.
--- NOTE | 2016-11-01 04:46 | L&D Discharge Summary ---
OB Discharge Summary Datetime Report Generated by CPN: 11/01/2016 04:45 DISCHARGE DIAGNOSIS Diagnosis/Symptoms: Other Diagnoses/Symptoms Other: Not Gestation: 20.6 DIET/ACTIVITY/RESTRICTIONS Diet: Regular Activity: Normal Activity TEACHING/INSTRUCTIONS/REFERRALS Instructions Given To: Patient Instructions Understood: Patient Verbalized Understanding; Support Person Verbalized Understanding Referrals: None DISCHARGE INFORMATION Discharged AMA: No Discharge Date/Time: 10/27/2016 10:26 Discharged To: Home Discharge Provider Name: Dr. Kramer Accompanied By: self Discharge Method: Ambulatory Condition: Stable FOLLOW UP INFORMATION Follow Up With: Other-Annotate Comments: Pt. transferred to ED for evaluation of back and neck pain.
--- NOTE | 2016-11-01 10:47 | L&D Discharge Summary ---
OB Discharge Summary Datetime Report Generated by CPN: 11/01/2016 10:45 DISCHARGE DIAGNOSIS Diagnosis/Symptoms: Other Diagnoses/Symptoms Other: Not Gestation: 20.6 DIET/ACTIVITY/RESTRICTIONS Diet: Regular Activity: Normal Activity TEACHING/INSTRUCTIONS/REFERRALS Instructions Given To: Patient Instructions Understood: Patient Verbalized Understanding; Support Person Verbalized Understanding Referrals: None DISCHARGE INFORMATION Discharged AMA: No Discharge Date/Time: 10/27/2016 10:26 Discharged To: Home Discharge Provider Name: Dr. Kramer Accompanied By: self Discharge Method: Ambulatory Condition: Stable FOLLOW UP INFORMATION Follow Up With: Other-Annotate Comments: Pt. transferred to ED for evaluation of back and neck pain.
--- NOTE | 2016-11-01 16:46 | L&D Discharge Summary ---
OB Discharge Summary Datetime Report Generated by CPN: 11/01/2016 16:45 DISCHARGE DIAGNOSIS Diagnosis/Symptoms: Other Diagnoses/Symptoms Other: Not Gestation: 20.6 DIET/ACTIVITY/RESTRICTIONS Diet: Regular Activity: Normal Activity TEACHING/INSTRUCTIONS/REFERRALS Instructions Given To: Patient Instructions Understood: Patient Verbalized Understanding; Support Person Verbalized Understanding Referrals: None DISCHARGE INFORMATION Discharged AMA: No Discharge Date/Time: 10/27/2016 10:26 Discharged To: Home Discharge Provider Name: Dr. Kramer Accompanied By: self Discharge Method: Ambulatory Condition: Stable FOLLOW UP INFORMATION Follow Up With: Other-Annotate Comments: Pt. transferred to ED for evaluation of back and neck pain.
--- NOTE | 2016-11-01 22:46 | L&D Discharge Summary ---
OB Discharge Summary Datetime Report Generated by CPN: 11/01/2016 22:45 DISCHARGE DIAGNOSIS Diagnosis/Symptoms: Other Diagnoses/Symptoms Other: Not Gestation: 20.6 DIET/ACTIVITY/RESTRICTIONS Diet: Regular Activity: Normal Activity TEACHING/INSTRUCTIONS/REFERRALS Instructions Given To: Patient Instructions Understood: Patient Verbalized Understanding; Support Person Verbalized Understanding Referrals: None DISCHARGE INFORMATION Discharged AMA: No Discharge Date/Time: 10/27/2016 10:26 Discharged To: Home Discharge Provider Name: Dr. Kramer Accompanied By: self Discharge Method: Ambulatory Condition: Stable FOLLOW UP INFORMATION Follow Up With: Other-Annotate Comments: Pt. transferred to ED for evaluation of back and neck pain.
--- NOTE | 2016-11-02 04:47 | L&D Discharge Summary ---
OB Discharge Summary Datetime Report Generated by CPN: 11/02/2016 04:45 DISCHARGE DIAGNOSIS Diagnosis/Symptoms: Other Diagnoses/Symptoms Other: Not Gestation: 20.6 DIET/ACTIVITY/RESTRICTIONS Diet: Regular Activity: Normal Activity TEACHING/INSTRUCTIONS/REFERRALS Instructions Given To: Patient Instructions Understood: Patient Verbalized Understanding; Support Person Verbalized Understanding Referrals: None DISCHARGE INFORMATION Discharged AMA: No Discharge Date/Time: 10/27/2016 10:26 Discharged To: Home Discharge Provider Name: Dr. Kramer Accompanied By: self Discharge Method: Ambulatory Condition: Stable FOLLOW UP INFORMATION Follow Up With: Other-Annotate Comments: Pt. transferred to ED for evaluation of back and neck pain.
--- NOTE | 2016-11-02 10:46 | L&D Discharge Summary ---
OB Discharge Summary Datetime Report Generated by CPN: 11/02/2016 10:45 DISCHARGE DIAGNOSIS Diagnosis/Symptoms: Other Diagnoses/Symptoms Other: Not Gestation: 20.6 DIET/ACTIVITY/RESTRICTIONS Diet: Regular Activity: Normal Activity TEACHING/INSTRUCTIONS/REFERRALS Instructions Given To: Patient Instructions Understood: Patient Verbalized Understanding; Support Person Verbalized Understanding Referrals: None DISCHARGE INFORMATION Discharged AMA: No Discharge Date/Time: 10/27/2016 10:26 Discharged To: Home Discharge Provider Name: Dr. Kramer Accompanied By: self Discharge Method: Ambulatory Condition: Stable FOLLOW UP INFORMATION Follow Up With: Other-Annotate Comments: Pt. transferred to ED for evaluation of back and neck pain.
--- NOTE | 2016-11-02 16:46 | L&D Discharge Summary ---
OB Discharge Summary Datetime Report Generated by CPN: 11/02/2016 16:45 DISCHARGE DIAGNOSIS Diagnosis/Symptoms: Other Diagnoses/Symptoms Other: Not Gestation: 20.6 DIET/ACTIVITY/RESTRICTIONS Diet: Regular Activity: Normal Activity TEACHING/INSTRUCTIONS/REFERRALS Instructions Given To: Patient Instructions Understood: Patient Verbalized Understanding; Support Person Verbalized Understanding Referrals: None DISCHARGE INFORMATION Discharged AMA: No Discharge Date/Time: 10/27/2016 10:26 Discharged To: Home Discharge Provider Name: Dr. Kramer Accompanied By: self Discharge Method: Ambulatory Condition: Stable FOLLOW UP INFORMATION Follow Up With: Other-Annotate Comments: Pt. transferred to ED for evaluation of back and neck pain.
--- NOTE | 2016-11-02 22:45 | L&D Discharge Summary ---
OB Discharge Summary Datetime Report Generated by CPN: 11/02/2016 22:45 DISCHARGE DIAGNOSIS Diagnosis/Symptoms: Other Diagnoses/Symptoms Other: Not Gestation: 20.6 DIET/ACTIVITY/RESTRICTIONS Diet: Regular Activity: Normal Activity TEACHING/INSTRUCTIONS/REFERRALS Instructions Given To: Patient Instructions Understood: Patient Verbalized Understanding; Support Person Verbalized Understanding Referrals: None DISCHARGE INFORMATION Discharged AMA: No Discharge Date/Time: 10/27/2016 10:26 Discharged To: Home Discharge Provider Name: Dr. Kramer Accompanied By: self Discharge Method: Ambulatory Condition: Stable FOLLOW UP INFORMATION Follow Up With: Other-Annotate Comments: Pt. transferred to ED for evaluation of back and neck pain.
--- NOTE | 2016-11-03 04:45 | L&D Discharge Summary ---
OB Discharge Summary Datetime Report Generated by CPN: 11/03/2016 04:45 DISCHARGE DIAGNOSIS Diagnosis/Symptoms: Other Diagnoses/Symptoms Other: Not Gestation: 20.6 DIET/ACTIVITY/RESTRICTIONS Diet: Regular Activity: Normal Activity TEACHING/INSTRUCTIONS/REFERRALS Instructions Given To: Patient Instructions Understood: Patient Verbalized Understanding; Support Person Verbalized Understanding Referrals: None DISCHARGE INFORMATION Discharged AMA: No Discharge Date/Time: 10/27/2016 10:26 Discharged To: Home Discharge Provider Name: Dr. Kramer Accompanied By: self Discharge Method: Ambulatory Condition: Stable FOLLOW UP INFORMATION Follow Up With: Other-Annotate Comments: Pt. transferred to ED for evaluation of back and neck pain.
--- NOTE | 2016-11-03 10:46 | L&D Discharge Summary ---
OB Discharge Summary Datetime Report Generated by CPN: 11/03/2016 10:45 DISCHARGE DIAGNOSIS Diagnosis/Symptoms: Other Diagnoses/Symptoms Other: Not Gestation: 20.6 DIET/ACTIVITY/RESTRICTIONS Diet: Regular Activity: Normal Activity TEACHING/INSTRUCTIONS/REFERRALS Instructions Given To: Patient Instructions Understood: Patient Verbalized Understanding; Support Person Verbalized Understanding Referrals: None DISCHARGE INFORMATION Discharged AMA: No Discharge Date/Time: 10/27/2016 10:26 Discharged To: Home Discharge Provider Name: Dr. Kramer Accompanied By: self Discharge Method: Ambulatory Condition: Stable FOLLOW UP INFORMATION Follow Up With: Other-Annotate Comments: Pt. transferred to ED for evaluation of back and neck pain.
== END 2016-10-27 10:26 | disposition other institution (70) ==
LOC: LC 08:33
PROVIDERS: ATTEND Student in an Organized Health Care Education/Training Program
PROC: 4A1HXCZ Monitoring of Products of Conception, Cardiac Rate, External Approach (ICD-10-PCS; principal; 2016-10-27)
DX: O46.92 Antepartum hemorrhage, unspecified, second trimester (principal); O99.89 Other specified diseases and conditions complicating pregnancy, childbirth and the puerperium; M54.9 Dorsalgia, unspecified; Z3A.25 25 weeks gestation of pregnancy
CPT/HCPCS: 36415; 76817; 80307; 81001; 84702; 86850; 86900; 86901

== ENCOUNTER 2016-10-27 10:32 | Emergency (ER) | payer MEDICAID ==
[2016-10-27 10:39] VITALS: BP 129/76
== END 2016-10-27 10:46 | disposition left against medical advice (07) ==
LOC: ER 10:32
DX: Z53.21 Procedure and treatment not carried out due to patient leaving prior to being seen by health care provider (principal)

== ENCOUNTER 2016-11-07 11:15 | Emergency (ER) | payer MEDICAID ==
[2016-11-07 11:31] VITALS: BP 126/80
--- NOTE | 2016-11-07 12:02 | ER Document Report ---
ED Skin Rash/Insect Bite/Abscs - General Chief Complaint: Abscess Stated Complaint: THIGH PAIN Mode of Arrival: Ambulatory Information source: Patient TRAVEL OUTSIDE OF THE [place] IN LAST 30 DAYS: No - HPI Patient complains to provider of: Tender/swollen area Onset: Yesterday Onset/Duration: Sudden Notes: The patient arrives with complaint of possible abscess to the right inner thigh. She states that she shaved a few days ago and yesterday noticed to swollen areas that were tender to the touch to the inner thigh. She complains of mild redness to this area. No drainage. No fevers. She denies diabetes. She denies any nausea, vomiting, diarrhea. No abdominal pain. No difficulty with urination. She has no other complaints. Area hurts more when walking, nothing really seems to make it better. - Related Data Allergies/Adverse Reactions: No Known Drug Allergies Allergy (Verified 05/02/16 10:21) Past Medical History - Social History Smoking Status: Unknown if Ever Smoked Family History: Reviewed & Not Pertinent Patient has suicidal ideation: No Patient has homicidal ideation: No Pulmonary Medical History: Reports: Hx Asthma Neurological Medical History: Reports: Hx Migraine Renal/ Medical History: Denies: Hx Peritoneal Dialysis - Immunizations Hx Diphtheria, Pertussis, Tetanus Vaccination: No Review of Systems - Review of Systems -: Yes All other systems reviewed and negative Physical Exam - Vital signs Vitals: Temp Pulse Resp BP Pulse Ox 98.6 F 74 14 126/80 H 100 11/07/16 11:28 11/07/16 11:28 11/07/16 11:28 11/07/16 11:28 11/07/16 11:28 - Notes Notes: GENERAL: alert, cooperative, nontoxic, no distress. HEAD: normocephalic, atraumatic EYES: conjunctiva pink without discharge, no external redness or swelling. EARS: no external swelling, no external redness NOSE: atraumatic, no external swelling MOUTH/THROAT: mucous membranes moist and pink NECK: soft, supple, full range of motion, no meningismus. CHEST: no distress, lungs clear and equal throughout. No wheezing, rales, rhonchi. CARDIAC: regular rate and rhythm, no murmur, normal capillary refill, normal pulses. BACK: full range of motion, no CVA tenderness. EXTREMITIES: full range of motion of all extremities. No redness, no swelling. NEURO: alert and oriented 3, no focal deficits, full range of motion of all extremities. PYSCH: appropriate mood, affect. Patient is cooperative. SKIN: pink, warm, dry, no rash. Patient is noted to have 2 half centimeter pustules to the right inner thigh. These are fluctuant. They're mildly tender to palpation. There is no significant surrounding erythema. No drainage. Course - Re-evaluation Re-evalutation: 11/07/16 11:59 Patient is nontoxic appearing with stable vitals. The patient started to have 2 small abscesses to the right inner thigh. These were I&D. Small amount of purulent material was expressed. Patient tolerated procedure well. There is no significant surrounding erythema the patient is afebrile and is not a diabetic. I will write her a prescription for Bactrim, but she was instructed she does not have to take it unless she feels that these are not improving in the next 2 days or she develops redness or fever. She was instructed to apply warm compresses. Follow-up if not improving in the next 3-4 days, sooner for increasing pain, fever, or any further concerns. The patient is noted to have elevated blood pressure during today's emergency department visit. The patient was informed of this finding. The patient was instructed that this may be related to pre-hypertension and requires further evaluation with a primary care provider. The patient has no hypertensive symptoms at this time. The patient's emergency department workup and current diagnosis were explained to the patient and or family. Follow-up instructions were provided. Medications if prescribed were discussed. Instructions for when to return to the emergency department including specific worrisome symptoms were discussed with the patient and/or family. - Vital Signs Vital signs: Temp Pulse Resp BP Pulse Ox 98.6 F 74 14 126/80 H 100 11/07/16 11:28 11/07/16 11:28 11/07/16 11:28 11/07/16 11:28 11/07/16 11:28 Procedures - Incision and Drainage right inner thigh Type: Simple, Multiple - 2 Anesthetic type: 1% Lidocaine mL's of anesthetic: 5 Blade size: 11 I&D procedure: Betadine prep applied Incision Method: Incision made by scalpel Amount/type of drainage: small amount of purulent drainage Notes: 11/07/16 12:01 Hemostats were used to break up loculations Discharge - Discharge Clinical Impression: Abscess Condition: Stable Disposition: HOME, SELF-CARE Instructions: Abscess ([facility]), Oral Narcotic Medication ([facility]), Trimethoprim- Sulfa ([facility]) Additional Instructions: Take medications as prescribed. Apply warm compresses to sore area. Start the antibiotics if not improving in next 2 days, or he develop redness around the area. Follow-up if not improved in the next 3-4 days, sooner for increased pain , fever, increased redness, or any further concerns. Your blood pressure was elevated during today's visit. Have this rechecked with your doctor. The medication you were prescribed today may cause drowsiness. Do not drive or operate heavy machinery while taking this medication. Prescriptions: Sulfamethoxazole/Trimethoprim [Bactrim Ds Tablet] 1 each PO BID #14 tablet Tramadol HCl [Ultram] 50 mg PO TID PRN #10 tablet PRN Reason: Forms: Elevated Blood Pressure
== END 2016-11-07 12:12 | disposition home or self-care (01) ==
LOC: ER 11:15
PROC: 0H9HXZZ Drainage of Right Upper Leg Skin, External Approach (ICD-10-PCS; principal; 2016-11-07)
DX: L02.415 Cutaneous abscess of right lower limb (principal)
CPT/HCPCS: 99283

== ENCOUNTER 2017-03-27 19:08 | Emergency (ER) | payer MEDICAID ==
[2017-03-27] MEDS ORDERED: LIDOCAINE 1% INJ-PF (10 MG/ML) 30 ML SDV INJ ONE (21:03)
--- NOTE | 2017-03-27 21:05 | ER Document Report ---
ED Skin Rash/Insect Bite/Abscs - General Chief Complaint: Abscess Stated Complaint: ABSCESS UNDER ARM Time Seen by Provider: 03/27/17 21:03 Mode of Arrival: Ambulatory Information source: Patient Notes: 26-year-old female with a history of an abscess in her right armpit that has had to be incised and drained before who presents to the ER today for 3 days of worsening pain and swelling to that area. She denies any fevers, chills or drainage but states that there is something white inside a small hole in the middle of the abscess. TRAVEL OUTSIDE OF THE [place] IN LAST 30 DAYS: No - Related Data Allergies/Adverse Reactions: No Known Drug Allergies Allergy (Verified 05/02/16 10:21) Past Medical History - General Information source: Patient - Social History Smoking Status: Unknown if Ever Smoked Family History: Reviewed & Not Pertinent Patient has suicidal ideation: No Patient has homicidal ideation: No Pulmonary Medical History: Reports: Hx Asthma Neurological Medical History: Reports: Hx Migraine Renal/ Medical History: Denies: Hx Peritoneal Dialysis Past Surgical History: Reports: Hx Oral Surgery - Immunizations Hx Diphtheria, Pertussis, Tetanus Vaccination: No Review of Systems - Review of Systems Skin: See HPI Physical Exam - Vital signs Vitals: Temp Pulse Resp BP Pulse Ox 98.3 F 85 18 112/72 100 03/27/17 19:19 03/27/17 19:19 03/27/17 19:19 03/27/17 19:19 03/27/17 19:19 - Notes Notes: PHYSICAL EXAMINATION: GENERAL: Well-appearing and in no acute distress. SKIN: Warm, Dry, normal turgor, induration approximately 3 cm x 1 cm to the right axilla, tender to palpation, small hole in the center Course - Vital Signs Vital signs: Temp Pulse Resp BP Pulse Ox 98.3 F 85 18 112/72 100 03/27/17 19:19 03/27/17 19:19 03/27/17 19:19 03/27/17 19:19 03/27/17 19:19
[2017-03-27 22:40] VITALS: BP 135/85
--- NOTE | 2017-03-27 22:45 | ER Document Report ---
ED General - General Chief Complaint: Abscess Stated Complaint: ABSCESS UNDER ARM Time Seen by Provider: 03/27/17 21:03 Mode of Arrival: Ambulatory Notes: Patient is a 26-year-old female with a history of prior right axillary abscesses who presents with a recurrence of the same. She states for the past 3 -4 days she has had progressively worsening pain to the right axilla with associated swelling. Notes a dull, constant, aching pain that is worsened by movement of the arm or touching the area. Nothing improves the pain. She denies any fever or constitutional symptoms. She has not seen a primary care doctor regarding today's concerns. She states in the past she has required incision and drainage for this presentation. TRAVEL OUTSIDE OF THE [place] IN LAST 30 DAYS: No - Related Data Allergies/Adverse Reactions: No Known Drug Allergies Allergy (Verified 05/02/16 10:21) Past Medical History - General Information source: Patient - Social History Smoking Status: Current Some Day Smoker Frequency of alcohol use: Occasional Drug Abuse: None Family History: Reviewed & Not Pertinent Patient has suicidal ideation: No Patient has homicidal ideation: No Pulmonary Medical History: Reports: Hx Asthma Neurological Medical History: Reports: Hx Migraine Renal/ Medical History: Denies: Hx Peritoneal Dialysis Past Surgical History: Reports: Hx Oral Surgery - Immunizations Hx Diphtheria, Pertussis, Tetanus Vaccination: No Review of Systems - Review of Systems Notes: Constitutional: Negative for fever. HENT: Negative for sore throat. Eyes: Negative for visual changes. Cardiovascular: Negative for chest pain. Respiratory: Negative for shortness of breath. Gastrointestinal: Negative for abdominal pain, vomiting or diarrhea. Genitourinary: Negative for dysuria. Musculoskeletal: Negative for back pain. Skin: Positive for right axillary abscess Neurological: Negative for headaches, weakness or numbness. 10 point ROS negative except as marked above and in HPI. Physical Exam - Vital signs Vitals: Temp Pulse Resp BP Pulse Ox 98.3 F 85 18 112/72 100 03/27/17 19:19 03/27/17 19:19 03/27/17 19:19 03/27/17 19:19 03/27/17 19:19 Interpretation: Normal Notes: PHYSICAL EXAMINATION: GENERAL: Well-appearing, well-nourished and in no acute distress. HEAD: Atraumatic, normocephalic. EYES: Pupils equal round and reactive to light, extraocular movements intact, sclera anicteric, conjunctiva are normal. ENT: nares patent, oropharynx clear without exudates. Moist mucous membranes. NECK: Normal range of motion, supple without lymphadenopathy LUNGS: Breath sounds clear to auscultation bilaterally and equal. No wheezes rales or rhonchi. HEART: Regular rate and rhythm without murmurs ABDOMEN: Soft, nontender, normoactive bowel sounds. No guarding, no rebound. No masses appreciated. EXTREMITIES: Normal range of motion, no pitting or edema. No cyanosis. NEUROLOGICAL: No focal neurological deficits. Moves all extremities spontaneously and on command. PSYCH: Normal mood, normal affect. SKIN: Warm, Dry, normal turgor, there is a 1 x 2 cm abscess in the right axilla without surrounding erythema Course - Re-evaluation Re-evalutation: 03/27/17 22:41 Patient presents with an abscess in the right axilla without any starting cellulitis. Vitals are otherwise within normal limits, no acute distress. She does not meet sepsis criteria. Otherwise extremely well in appearance. The abscess was incised and drained the bedside with expression of 4 cc of purulent drainage. She was placed on TMP-SMX 2 tabs twice daily for 5 days. At this time will discharge with return precautions and follow-up recommendations. Verbal discharge instructions given a the bedside and opportunity for questions given. Medication warnings reviewed. Patient is in agreement with this plan and has verbalized understanding of return precautions and the need for primary care follow-up in the next 24-72 hours. - Vital Signs Vital signs: Temp Pulse Resp BP Pulse Ox 98.3 F 85 18 135/85 H 97 03/27/17 19:19 03/27/17 22:21 03/27/17 22:21 03/27/17 22:21 03/27/17 22:21 Procedures - Incision and Drainage Right Arm Type: Simple Anesthetic type: 1% Lidocaine mL's of anesthetic: 4 Blade size: 11 I&D procedure: Betadine prep applied Incision Method: Incision made by scalpel Amount/type of drainage: 4 cc of purulent drainage Discharge - Discharge Clinical Impression: Abscess of right axilla Condition: Good Disposition: HOME, SELF-CARE Additional Instructions: You were seen for an abscess that required drainage. Please clean this area with soap and water twice daily and apply a topical antibiotic. Dress the area after each cleaning. Please return if you develop fever, vomiting, the pain at the site worsens, you notice spreading redness from the area, or you have any other symptoms that are concerning to you. Prescriptions: Sulfamethoxazole/Trimethoprim [Bactrim Ds Tablet] 2 tab PO BID #20 tablet
== END 2017-03-27 22:59 | disposition home or self-care (01) ==
LOC: ER 19:08
PROC: 0H9BXZZ Drainage of Right Upper Arm Skin, External Approach (ICD-10-PCS; principal; 2017-03-27)
DX: L02.411 Cutaneous abscess of right axilla (principal); F17.200 Nicotine dependence, unspecified, uncomplicated
CPT/HCPCS: 99283

== ENCOUNTER 2017-07-11 08:11 | Emergency (ER) | payer SELFPAY ==
[2017-07-11] MEDS ORDERED: PENICILLIN V POTASSIUM 500 MG TABLET PO ONE (09:35)
[2017-07-11] MEDS ORDERED: TRAMADOL HCL 50 MG TABLET PO ONE (09:35)
--- NOTE | 2017-07-11 09:41 | ER Document Report ---
ED General - General Chief Complaint: Toothache Stated Complaint: TOOTHACHE VOMITING EAR PAIN Time Seen by Provider: 07/11/17 08:27 Mode of Arrival: Ambulatory Information source: Patient Notes: 26-year-old female presents with complaints of dental pain. Patient is noted to have tenderness of tooth #22. Patient denies any fevers or chills denies any swelling in the tooth patient does have a redundant tooth and needs to have this removed and have braces placed TRAVEL OUTSIDE OF THE [place] IN LAST 30 DAYS: No - HPI Onset: Last week Onset/Duration: Persistent Quality of pain: Achy Severity: Mild Pain Level: 1 Associated symptoms: Other Exacerbated by: Denies Relieved by: Denies Similar symptoms previously: Yes Recently seen / treated by doctor: Yes - Related Data Allergies/Adverse Reactions: No Known Drug Allergies Allergy (Verified 05/02/16 10:21) Past Medical History - Social History Smoking Status: Never Smoker Cigarette use (# per day): No Chew tobacco use (# tins/day): No Smoking Education Provided: No Family History: Reviewed & Not Pertinent Patient has suicidal ideation: No Patient has homicidal ideation: No Pulmonary Medical History: Reports: Hx Asthma Neurological Medical History: Reports: Hx Migraine Renal/ Medical History: Denies: Hx Peritoneal Dialysis Past Surgical History: Reports: Hx Oral Surgery - Immunizations Hx Diphtheria, Pertussis, Tetanus Vaccination: No Review of Systems - Review of Systems Notes: REVIEW OF SYSTEMS: CONSTITUTIONAL : Denies fever, chills, or sweats. Denies recent illness. EENT: Admits to dental pain CARDIOVASCULAR: Denies chest pain. Denies palpitations or racing or irregular heart beat. Denies ankle edema. RESPIRATORY: Denies cough, cold, or chest congestion. Denies shortness of breath, difficulty breathing, or wheezing. GASTROINTESTINAL: Denies abdominal pain or distention. Denies nausea, vomiting , or diarrhea. Denies blood in vomitus, stools, or per rectum. Denies black, tarry stools. Denies constipation. GENITOURINARY: Denies difficulty urinating, painful urination, burning, frequency, blood in urine, or discharge. FEMALE GENITOURINARY: Denies vaginal bleeding, heavy or abnormal periods, irregular periods. Denies vaginal discharge or odor. MUSCULOSKELETAL: Denies back or neck pain or stiffness. Denies joint pain or swelling. SKIN: Denies rash, lesions or sores. HEMATOLOGIC : Denies easy bruising or bleeding. LYMPHATIC: Denies swollen, enlarged glands. NEUROLOGICAL: Denies confusion or altered mental status. Denies passing out or loss of consciousness. Denies dizziness or lightheadedness. Denies headache. Denies weakness or paralysis or loss of use of either side. Denies problems with gait or speech. Denies sensory loss, numbness, or tingling. Denies seizures. PSYCHIATRIC: Denies anxiety or stress. Denies depression, suicidal ideation, or homicidal ideation. ALL OTHER SYSTEMS REVIEWED AND NEGATIVE. PHYSICAL EXAMINATION: GENERAL: Well-appearing, well-nourished and in no acute distress. HEAD: Atraumatic, normocephalic. EYES: Pupils equal round and reactive to light, extraocular movements intact, conjunctiva are normal. ENT: Tooth #22 redundant tender no abscess noted no gingivitis NECK: Normal range of motion, supple without lymphadenopathy LUNGS: Breath sounds clear to auscultation bilaterally and equal. No wheezes rales or rhonchi. HEART: Regular rate and rhythm without murmurs ABDOMEN: Soft, nontender, nondistended abdomen. No guarding, no rebound. No masses appreciated. Female : deferred Musculoskeletal: Normal range of motion, no pitting or edema. No cyanosis. NEUROLOGICAL: Cranial nerves grossly intact. Normal speech, normal gait. Normal sensory, motor exams PSYCH: Normal mood, normal affect. SKIN: Warm, Dry, normal turgor, no rashes or lesions noted. Dictation was performed using [email or web address] voice recognition software Physical Exam - Vital signs Vitals: Temp Pulse Resp BP Pulse Ox 97.7 F 86 16 112/77 100 07/11/17 08:19 07/11/17 08:19 07/11/17 08:19 07/11/17 08:19 07/11/17 08:19 Course - Re-evaluation Re-evalutation: 07/11/17 12:21 Patient has no intraoral emergency, airways patent uvula is midline there is no signs of Gonzalo's angina, there is no abscess noted, I will treat the patient with pain control and antibiotics and follow-up with her dentist per previous appointment After performing a Medical Screening Examination, I estimate there is LOW risk for a DEEP SPACE INFECTION (e.g., GONZALO'S ANGINA OR RETROPHARYNGEAL ABSCESS), MENINGITIS, INTRACRANIAL HEMORRHAGE, or AIRWAY COMPROMISE, thus I consider the discharge disposition reasonable. Also, there is no evidence or peritonitis, sepsis, or toxicity. I have reevaluated this patient multiple times and no significant life threatening changes are noted. The patient and I have discussed the diagnosis and risks, and we agree with discharging home with close follow-up with the understanding that symptoms and presentations can change. We also discussed returning to the Emergency Department immediately if new or worsening symptoms occur. We have discussed the symptoms which are most concerning (e.g., changing or worsening pain, trouble swallowing or breathing, neck stiffness or fever) that necessitate immediate return. - Vital Signs Vital signs: Temp Pulse Resp BP Pulse Ox 97.7 F 86 16 112/77 100 07/11/17 08:19 07/11/17 08:19 07/11/17 08:19 07/11/17 08:19 07/11/17 08:19 Discharge - Discharge Clinical Impression: Pain, dental Condition: Stable Disposition: HOME, SELF-CARE Instructions: Toothache ([facility]) Additional Instructions: Please follow-up with your dentist for further evaluation and care Prescriptions: Penicillin V Potassium [Penicillin Vk 500 mg Tablet] 500 mg PO Q6 #40 tablet Tramadol HCl 50 mg PO Q8 #14 tablet
[2017-07-11 10:06] VITALS: BP 134/70
== END 2017-07-11 10:06 | disposition home or self-care (01) ==
LOC: ER 08:11
DX: K08.89 Other specified disorders of teeth and supporting structures (principal)
CPT/HCPCS: 99282

== ENCOUNTER 2017-10-08 13:43 | Emergency (ER) | payer MEDICAID ==
[2017-10-08 13:58] VITALS: BP 126/74
[2017-10-08] MEDS ORDERED: IBUPROFEN 600 MG TABLET PO ONE (14:24)
== END 2017-10-08 15:00 | disposition left against medical advice (07) ==
LOC: ER 13:43
DX: Z53.21 Procedure and treatment not carried out due to patient leaving prior to being seen by health care provider (principal); M54.9 Dorsalgia, unspecified; R10.9 Unspecified abdominal pain; R11.0 Nausea

== ENCOUNTER 2017-10-14 12:04 | Emergency (ER) | payer MEDICAID ==
--- NOTE | 2017-10-14 12:45 | ER Document Report ---
ED Medical Screen (RME) - General Chief Complaint: Abdominal Cramping Stated Complaint: ABDOMINAL AND TOOTH PAIN Time Seen by Provider: 10/14/17 12:39 Notes: 26-year-old female patient with lower abdomen cramps and pain for 3 weeks. Off control pills for 2 months. Also has a toothache in her right jaw. I have greeted and performed a rapid initial assessment of this patient. A comprehensive ED assessment and evaluation of the patient, analysis of test results and completion of the medical decision making process will be conducted by additional ED providers. TRAVEL OUTSIDE OF THE [place] IN LAST 30 DAYS: No - Related Data Allergies/Adverse Reactions: acetaminophen [From Tylenol] Allergy (Verified 10/14/17 12:06) Past Medical History Pulmonary Medical History: Reports: Hx Asthma Neurological Medical History: Reports: Hx Migraine Renal/ Medical History: Denies: Hx Peritoneal Dialysis Past Surgical History: Reports: Hx Oral Surgery - Immunizations Hx Diphtheria, Pertussis, Tetanus Vaccination: No Physical Exam - Vital signs Vitals: Temp Pulse Resp BP Pulse Ox 98.4 F 93 16 121/80 97 10/14/17 12:10 10/14/17 12:10 10/14/17 12:10 10/14/17 12:10 10/14/17 12:10 Course - Vital Signs Vital signs: Temp Pulse Resp BP Pulse Ox 98.4 F 93 16 121/80 97 10/14/17 12:10 10/14/17 12:10 10/14/17 12:10 10/14/17 12:10 10/14/17 12:10
[2017-10-14 13:11] LABS: APPEARANCE,URINE SLIGHTLY-CLOUDY; BILIRUBIN,URINE NEGATIVE (NEGATIVE); COLOR,URINE YELLOW; GLUCOSE, URINE NEGATIVE (NEGATIVE); KETONES,URINE 20 mg/dL (NEGATIVE); LEUKOCYTE ESTERASE,URINE NEGATIVE (NEGATIVE); NITRITE,URINE NEGATIVE (NEGATIVE); PROTEIN,URINE 30 mg/dL (NEGATIVE); URINE SPECIFIC GRAVITY 1.033
[2017-10-14] MEDS ORDERED: LIDOCAINE 2% VISCOUS SOLN 20 ML UDCUP PO ONE (13:56)
--- NOTE | 2017-10-14 13:57 | ER Document Report ---
ED General - General Chief Complaint: Abdominal Cramping Stated Complaint: ABDOMINAL AND TOOTH PAIN Time Seen by Provider: 10/14/17 12:39 TRAVEL OUTSIDE OF THE [place] IN LAST 30 DAYS: No - HPI Notes: Patient is a 26-year-old female who presents to the ED complaining of intermittent left lower pelvic pain 3 weeks. Patient states that she has had pain like this before and was told that it was an ovarian cyst. 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 Patient states that she is otherwise been eating and drinking without difficulties. She is urinating normally and having normal bowel movements. She has not had any vaginal discharge, odor, or bleeding. Patient states that her pain is currently mild and is able to ambulate and perform her ADLs without any difficulties. Patient states that she is also had right upper dental pain to #2 as it recently chipped. Patient states that she does have a dentist appointment scheduled for 8 days from now, but the pain is bothering her which is what brought her to the emergency department today. Patient states that she just wanted her pelvic pain addressed as well, but is primarily here because of her tooth. Patient has not noticed any other obvious abscess or discharge. The pain will radiate into her jaw as well as towards her right ear. She has not had any other recent illness. Denies any headache, fever, head injury, neck pain, URI, sore throat, chest pain, palpitations, syncope, cough, shortness of breath, wheeze, dyspnea, nausea/vomiting/diarrhea, urinary retention, dysuria, hematuria, loss of control of bowel or bladder, numbness/ tingling, saddle anesthesia, muscle paralysis/weakness, or rash. Pt states that she actually wants to go eat and get Bang's or BBQ after she is discharged. - Related Data Allergies/Adverse Reactions: acetaminophen [From Tylenol] Allergy (Verified 10/14/17 12:06) Past Medical History - Social History Smoking Status: Unknown if Ever Smoked Family History: Reviewed & Not Pertinent Patient has suicidal ideation: No Patient has homicidal ideation: No Pulmonary Medical History: Reports: Hx Asthma Neurological Medical History: Reports: Hx Migraine Renal/ Medical History: Denies: Hx Peritoneal Dialysis Past Surgical History: Reports: Hx Oral Surgery - Immunizations Hx Diphtheria, Pertussis, Tetanus Vaccination: No Review of Systems - Review of Systems -: Yes All other systems reviewed and negative Physical Exam - Vital signs Vitals: Temp Pulse Resp BP Pulse Ox 98.4 F 93 16 121/80 97 10/14/17 12:10 10/14/17 12:10 10/14/17 12:10 10/14/17 12:10 10/14/17 12:10 - Notes Notes: PHYSICAL EXAMINATION: GENERAL: Well-appearing, well-nourished and in no acute distress. HEAD: Atraumatic, normocephalic. EYES: Pupils equal round and reactive to light, extraocular movements intact, sclera anicteric, conjunctiva are normal. ENT: EAC clear b/l. TM's intact b/l without erythema, fluid, or perforation. Nares patent and without discharge. oropharynx clear without exudates. No tonsilar hypertrophy or erythema. Moist mucous membranes. No sinus tenderness. Uvula midline. No palatine shift. No tongue protrusion. No respiratory compromise. Mouth: Poor dentition. + decay and mild gingivitis. No obvious abscess or discharge noted. No facial swelling. + tenderness to tooth #2. NECK: Normal range of motion, supple without lymphadenopathy. No rigidity/ meningismus. LUNGS: Breath sounds clear to auscultation bilaterally and equal. No wheezes rales or rhonchi. HEART: Regular rate and rhythm without murmurs, rubs, gallops. ABDOMEN: Soft, nondistended abdomen. No guarding, no rebound. No masses appreciated. Normal bowel sounds present. No CVA tenderness bilaterally. + mild tenderness left lower pelvic area. No tenderness at Mcburney point, neg shipley. NEUROLOGICAL: Cranial nerves grossly intact. Normal speech, normal gait. Normal sensory, motor exams PSYCH: Normal mood, normal affect. SKIN: Warm, Dry, normal turgor, no rashes or lesions noted. Course - Re-evaluation Re-evalutation: 10/14/17 15:32 Patient is an afebrile, well-hydrated, 26-year-old female who presents to the ED with dental pain, suspect nerve root etiology versus infection, as well as bilateral 'simple' ovarian cysts. Vitals are acceptable. PE is otherwise unremarkable. HCG was negative. See transvaginal ultrasound report. Patient is tolerating p.o. without any difficulties. Patient's abdomen was otherwise soft and nontender at [facility]. Viscous lidocaine given today. I will be sending her home with prescription for penicillin. Low suspicion for any meningitis, sepsis, peritonsillar/pharyngeal abscess, respiratory compromise, Russell's, temporal arteritis, acute appendicitis, bowel obstruction, acute cholecystitis, acute cholangitis, perforated diverticulitis, incarcerated hernia , pancreatitis, perforated ulcer, peritonitis, sepsis, pelvic inflammatory disease, ectopic , tubo-ovarian abscess, ovarian torsion, or other systemic emergent condition at this time. Patient is aware that her condition can change from initial presentation and she needs to monitor symptoms closely and seek medical attention if any acute changes. Conservative measures otherwise for symptoms. Recheck with OBGYN in 3-5 days. Recheck with your PCM in 3-5 days. Schedule a consult with a dentist. Return to the ED with any worsening/concerning symptoms otherwise as reviewed in discharge. Patient is in agreement. - Vital Signs Vital signs: Temp Pulse Resp BP Pulse Ox 98.4 F 93 16 121/80 97 10/14/17 12:10 10/14/17 12:10 10/14/17 12:10 10/14/17 12:10 10/14/17 12:10 - Laboratory Laboratory results interpreted by me: 10/14/17 12:48 Urine Protein 30 H Urine Ketones 20 H Urine Urobilinogen 2.0 H Discharge - Discharge Clinical Impression: Toothache Ovarian cyst Qualifiers: Laterality: bilateral Qualified Code(s): N83.201 - Unspecified ovarian cyst, right side; N83.202 - Unspecified ovarian cyst, left side; N83.202 - Unspecified ovarian cyst, left side Condition: Stable Disposition: HOME, SELF-CARE Instructions: Penicillin V K ([facility]), Toothache ([facility]), Ovarian Cyst ([facility]) Additional Instructions: [place] and floss twice daily Maintain fluid intake Take antibiotics as directed Mouthwash, salt water gargles, peroxide rinse as needed Tylenol/ibuprofen as needed Recheck with PCM this week Schedule an appointment with your OBGYN Call today/tomorrow and schedule an appointment with your dentist for further evaluation Return to the ED with any worsening symptoms and/or development of fever, headache, facial swelling, swelling of lips/tongue/throat, trouble swallowing, drooling, hoarseness, neck pain/stiffness, chest pain, palpitations, syncope, shortness of breath, trouble breathing, abdominal pain, n/v/d, numbness/tingling , vaginal discharge/odor/bleeding, or other worsening symptoms that are concerning to you. Prescriptions: Penicillin V Potassium [Penicillin Vk 500 mg Tablet] 500 mg PO BID #20 tablet [facility]errals[facility] [Provider [facility]] - Follow up in 3-5 days [facility] [Provider Group] - Follow up as needed
--- NOTE | 2017-10-14 15:06 | RADIOLOGY REPORT (SQ) ---
EXAM DESCRIPTION: U/S NON OB PEL TV W/DOPPLER COMPLETED DATE/TIME: 10/14/2017 2:57 pm REASON FOR STUDY: left pelvic pain COMPARISON: OB ultrasound 10/27/2016 TECHNIQUE: Dynamic and static grayscale images acquired of the pelvis via transvaginal approach and recorded on PACS. Additional selected color Doppler and spectral images recorded. LIMITATIONS: None. FINDINGS: UTERUS: Contour normal. No mass. The liver is 9 x 4 x 5 cm in size. ENDOMETRIAL STRIPE: No focal or generalized thickening. No masses. Endometrial stripe 11 mm in thick ness CERVIX: No nabothian cysts. RIGHT OVARY: No abnormal masses. Right ovary 3.7 x 2.4 x 2 cm in size with a 2 x 1.5 cm simple cyst RIGHT OVARY DOPPLER: Normal arterial vascular flow without evidence for torsion. LEFT OVARY: No abnormal masses. Left ovary 2.9 x 3.4 cm in size with a 3 x 2 cm simple cyst. LEFT OVARY DOPPLER: Normal arterial vascular flow without evidence for torsion. FREE FLUID: None noted. OTHER: No other significant finding. IMPRESSION: Bilateral ovarian simple cysts. No ultrasound evidence of torsion. No free pelvic flui d. TECHNICAL DOCUMENTATION: JOB ID: [id number] [employer]- All Rights Reserved Reading location - IP/workstation name: [email or web address]
[2017-10-14 15:46] VITALS: BP 120/79
[2017-10-14 16:08] LABS: CHLAM PCR NOT DETECTED (NOT DETECT); GON PCR NOT DETECTED (NOT DETECT)
== END 2017-10-14 15:42 | disposition home or self-care (01) ==
LOC: ER 12:04
DX: N83.201 Unspecified ovarian cyst, right side (principal); N83.202 Unspecified ovarian cyst, left side; K08.89 Other specified disorders of teeth and supporting structures; R10.2 Pelvic and perineal pain; J45.909 Unspecified asthma, uncomplicated
CPT/HCPCS: 99284; 81025; 81001; 87491; 87591; 76830; 93976; J3490

== ENCOUNTER 2018-01-12 13:55 | Emergency (ER) | payer MEDICAID ==
--- NOTE | 2018-01-12 15:30 | ER Document Report ---
ED Medical Screen (RME) - General Chief Complaint: Abdominal Pain Stated Complaint: ABDOMINAL/FLANK PAIN Time Seen by Provider: 01/12/18 14:56 Mode of Arrival: Ambulatory Information source: Patient Notes: 27-year-old female presents with complaints of one-month duration of left lower quadrant right lower quadrant pain. Patient believes she has continued pain from her cyst. Patient denies any fevers or chills denies any vomiting admits to nausea I have greeted and performed a rapid initial assessment of this patient. A comprehensive ED assessment and evaluation of the patient, analysis of test results and completion of the medical decision making process will be conducted by additional ED providers. PHYSICAL EXAMINATION: GENERAL: Well-appearing, well-nourished and in no acute distress. HEAD: Atraumatic, normocephalic. EYES: Pupils equal round extraocular movements intact, conjunctiva are normal. ENT: Nares patent NECK: Normal range of motion LUNGS: No respiratory distress Musculoskeletal: Normal range of motion NEUROLOGICAL: Normal speech, normal gait. PSYCH: Normal mood, normal affect. SKIN: Warm, Dry, normal turgor, no rashes or lesions noted. TRAVEL OUTSIDE OF THE [place] IN LAST 30 DAYS: No - Related Data Allergies/Adverse Reactions: acetaminophen [From Tylenol] Allergy (Verified 01/12/18 13:56) Past Medical History Pulmonary Medical History: Reports: Hx Asthma Neurological Medical History: Reports: Hx Migraine Renal/ Medical History: Denies: Hx Peritoneal Dialysis Past Surgical History: Reports: Hx Oral Surgery - Immunizations Hx Diphtheria, Pertussis, Tetanus Vaccination: No Physical Exam - Vital signs Vitals: Temp Pulse Resp BP Pulse Ox 98.6 F 104 H 16 121/70 98 01/12/18 13:59 01/12/18 13:59 01/12/18 13:59 01/12/18 13:59 01/12/18 13:59 Course - Vital Signs Vital signs: Temp Pulse Resp BP Pulse Ox 98.6 F 104 H 16 121/70 98 01/12/18 13:59 01/12/18 13:59 01/12/18 13:59 01/12/18 13:59 01/12/18 13:59 Doctor's Discharge - Discharge Referrals: SARAH SEE PA-C [Primary Care Provider] - Follow up as needed
--- NOTE | 2018-01-12 15:56 | ER Document Report ---
ED GI/ - General Chief Complaint: Abdominal Pain Stated Complaint: ABDOMINAL/FLANK PAIN Time Seen by Provider: 01/12/18 14:56 Mode of Arrival: Ambulatory Information source: Patient TRAVEL OUTSIDE OF THE [place] IN LAST 30 DAYS: No - HPI Patient complains to provider of: Pelvic pain Onset: Other - 6 MONTHS Timing/Duration: Gradual, Intermittent Quality of pain: Cramping - OCCASIONALLY, Dull - MOSTLY Severity at maximum: Moderate Severity in ED: Almost gone Context: denies: Bad food, Lifting, Out of the country travel, , Recent trauma, Other - KNOWN TO HAVE "OVARIAN CYSTS" Location: LLQ, RLQ, Pelvis Vaginal bleeding (Compared to normal period): None Sexual history: Inactive Associated symptoms: Chills, Nausea, Vaginal discharge - OCCASIONAL. denies: Dysuria, Urinary frequency, Urinary urgency - Related Data Allergies/Adverse Reactions: acetaminophen [From Tylenol] Allergy (Verified 01/12/18 13:56) Past Medical History - General Information source: Patient - Social History Smoking Status: Never Smoker Cigarette use (# per day): No Chew tobacco use (# tins/day): No Frequency of alcohol use: Occasional Drug Abuse: None Lives with: Family Family History: Reviewed & Not Pertinent Patient has suicidal ideation: No Patient has homicidal ideation: No - Past Medical History Cardiac Medical History: Reports: None Pulmonary Medical History: Reports: Hx Asthma Neurological Medical History: Reports: Hx Migraine Endocrine Medical History: Reports: None Renal/ Medical History: Reports: Hx Ovarian Cysts. Denies: Hx Peritoneal Dialysis Malignancy Medical History: Reports: None GI Medical History: Reports: None Musculoskeltal Medical History: Reports None Psychiatric Medical History: Reports: None Past Surgical History: Reports: Hx Oral Surgery - Immunizations Hx Diphtheria, Pertussis, Tetanus Vaccination: No Review of Systems - Review of Systems Constitutional: See HPI EENT: No symptoms reported Cardiovascular: No symptoms reported Respiratory: No symptoms reported Gastrointestinal: See HPI Genitourinary: No symptoms reported Female Genitourinary: See HPI Musculoskeletal: No symptoms reported Skin: No symptoms reported Neurological/Psychological: No symptoms reported Physical Exam - Vital signs Vitals: Temp Pulse Resp BP Pulse Ox 98.6 F 104 H 16 121/70 98 01/12/18 13:59 01/12/18 13:59 01/12/18 13:59 01/12/18 13:59 01/12/18 13:59 Interpretation: Tachycardic. No: Hypotensive, Tachypneic, Febrile - General General appearance: Appears well, Alert In distress: None - HEENT Head: Normocephalic Eyes: Normal Conjunctiva: Normal Ears: Normal Nasal: Normal Mouth/Lips: Normal Mucous membranes: Normal - Respiratory Respiratory status: No respiratory distress - Cardiovascular Rhythm: Regular - Abdominal Inspection: Normal Distension: No distension Bowel sounds: Normal Tenderness: Tender - MILD, BOTH LOWER QUADRANTS, MORE ON LEFT - Genitourinary External exam: Normal Speculum exam: Normal, Vaginal discharge - MODERATE WHITE Vaginal bleeding: None Bimanuel exam: Normal. No: Cervical motion tender, Adnexal mass - Back Back: Normal. No: CVA tenderness - Extremities General upper extremity: Normal inspection General lower extremity: Normal inspection - Neurological Neuro grossly intact: Yes Cognition: Normal Orientation: AAOx4 - Psychological Associated symptoms: Normal affect, Normal mood - Skin Skin Temperature: Warm Skin Moisture: Dry Skin Color: Normal Skin Turgor: Elastic Course - Vital Signs Vital signs: Temp Pulse Resp BP Pulse Ox 98.6 F 104 H 16 121/70 98 01/12/18 13:59 01/12/18 13:59 01/12/18 13:59 01/12/18 13:59 01/12/18 13:59 - Laboratory Result Diagrams: 01/12/18 15:45 01/12/18 15:45 Discharge - Discharge Clinical Impression: Pelvic pain, History of ovarian cyst Condition: Stable Disposition: HOME, SELF-CARE Instructions: Use of [id number] Ibuprofen ([facility]), Pelvic Pain ([facility]) Additional Instructions: REST, DRINK PLENTY OF FLUIDS. TAKE IBUPROFEN IF NEEDED FOR PAIN CONTROL. FOLLOW UP WITH YOUR PRIMARY CARE PROVIDER OR RETURN TO E.R. IF PROBLEMS. Referrals: SARAH SEE PA-C [Primary Care Provider] - Follow up as needed
[2018-01-12 16:06] LABS: ABSOLUTE BASOPHILS # (AUTO) 0.1 10^3/uL (0.0-0.2); ABSOLUTE LYMPHOCYTES (AUTO) 1.8 10^3/uL (0.5-4.7); ABSOLUTE MONOCYTES (AUTO) 0.4 10^3/uL (0.1-1.4); ABSOLUTE NEUT (AUTO) 5.4 10^3/uL (1.7-8.2); BASOPHILS % (AUTO) 0.7 % (0-2); EOSINOPHILS % (AUTO) 0.4 % (0-6); HEMATOCRIT 41.1 % (36.0-47.0); HEMOGLOBIN 13.9 g/dL (12.0-15.5); LYMPHOCYTES % (AUTO) 23.5 % (13-45); MEAN CORPUSCULAR HEMOGLOBIN 27.9 pg (27.0-33.4); MEAN CORPUSCULAR HGB CONC 33.7 g/dL (32.0-36.0); MEAN CORPUSCULAR VOLUME 83 fl (80-97); MONOCYTES % (AUTO) 5.4 % (3-13); PLATELET COUNT 416 10^3/uL (150-450); RED BLOOD COUNT 4.97 10^6/uL (3.72-5.28); RED CELL DISTRIBUTION WIDTH 13.4 % (11.5-14.0); TOTAL CELLS COUNTED % (AUTO) 100 %; WHITE BLOOD COUNT 7.7 10^3/uL (4.0-10.5)
[2018-01-12 16:13] LABS: APPEARANCE,URINE CLEAR; BILIRUBIN,URINE NEGATIVE (NEGATIVE); COLOR,URINE YELLOW; GLUCOSE, URINE NEGATIVE (NEGATIVE); KETONES,URINE NEGATIVE (NEGATIVE); LEUKOCYTE ESTERASE,URINE NEGATIVE (NEGATIVE); NITRITE,URINE NEGATIVE (NEGATIVE); PROTEIN,URINE NEGATIVE (NEGATIVE); URINE SPECIFIC GRAVITY 1.018; UROBILINOGEN,URINE NEGATIVE mg/dL (<2.0)
[2018-01-12 16:26] LABS: ALANINE AMINOTRANSFERASE 16 U/L (9-52); ALBUMIN 4.3 g/dL (3.5-5.0); ALKALINE PHOSPHATASE 58 U/L (38-126); ANION GAP 11 (5-19); ASPARTATE AMINO TRANSFERASE 20 U/L (14-36); BILIRUBIN,DIRECT 0.4 mg/dL (0.0-0.4); BILIRUBIN,TOTAL 0.7 mg/dL (0.2-1.3); BLOOD UREA NITROGEN 10 mg/dL (7-20); CALCIUM 9.8 mg/dL (8.4-10.2); CARBON DIOXIDE 26 mmol/L (22-30); CHLORIDE 104 mmol/L (98-107); GLUCOSE 98 mg/dL (75-110); POTASSIUM 4.3 mmol/L (3.6-5.0); SODIUM 140.7 mmol/L (137-145)
--- NOTE | 2018-01-12 18:09 | RADIOLOGY REPORT (SQ) ---
EXAM DESCRIPTION: U/S NON OB PEL TV W/DOPPLER COMPLETED DATE/TIME: 01/12/2018 4:45 pm REASON FOR STUDY: LLQ pain COMPARISON: 10/14/2017 TECHNIQUE: Dynamic and static grayscale images acquired of the pelvis via transvaginal approach and recorded on PACS. Additional selected color Doppler and spectral images recorded. LIMITATIONS: None. FINDINGS: UTERUS: Contour normal. No mass. ENDOMETRIAL STRIPE: Fluid in the endometrium. CERVIX: No nabothian cysts. RIGHT OVARY AND DOPPLER: Normal size. No worrisome masses. Normal arterial vascular flow without evid ence for torsion. LEFT OVARY AND DOPPLER: Normal size. No worrisome masses. Normal arterial vascular flow without evide nce for torsion. FREE FLUID: Free fluid in the cul de sac. OTHER: No other significant finding. MEASUREMENTS: UTERUS: 9 cm ENDOMETRIAL STRIPE: 9.4 mm RIGHT OVARY: 3 cm LEFT OVARY: 4 cm IMPRESSION: Fluid in the endometrium. Small amount of fluid in the cul-de-sac. TECHNICAL DOCUMENTATION: JOB ID: [id number] [employer]- All Rights Reserved Rev-11/28 Reading location - IP/workstation name: [email or web address]
[2018-01-12 19:07] LABS: BACTERIA (WET MOUNT) 4+ BACTERIA SEEN; EPITHELIALS (WET MOUNT) 4+ EPITHELIALS SEEN; T.VAGINALIS (WET MOUNT) NO TRICHOMONAS SEEN; WBCS (WET MOUNT) 1+ WBCS SEEN; YEAST (WET MOUNT) NO YEAST SEEN
[2018-01-12 20:20] VITALS: BP 118/70
[2018-01-12 20:30] LABS: CHLAM PCR NOT DETECTED (NOT DETECT); GON PCR NOT DETECTED (NOT DETECT)
== END 2018-01-12 20:20 | disposition home or self-care (01) ==
LOC: ER 13:55 → EEVIPCON 13:55 → ER 20:20
DX: R10.2 Pelvic and perineal pain (principal); R10.813 Right lower quadrant abdominal tenderness; R10.814 Left lower quadrant abdominal tenderness; R11.0 Nausea; N89.8 Other specified noninflammatory disorders of vagina; R68.83 Chills (without fever); J45.909 Unspecified asthma, uncomplicated; R00.0 Tachycardia, unspecified; Z87.42 Personal history of other diseases of the female genital tract; Z88.6 Allergy status to analgesic agent
CPT/HCPCS: 36415; 76830; 80053; 81001; 81025; 85025; 87210; 87491; 87591; 93976; 99284

== ENCOUNTER 2018-01-14 09:21 | Emergency (ER) | payer MEDICAID ==
--- NOTE | 2018-01-14 10:01 | ER Document Report ---
ED General - General Mode of Arrival: Ambulatory Information source: Patient TRAVEL OUTSIDE OF THE [place] IN LAST 30 DAYS: No - General Chief Complaint: Pelvic Pain Stated Complaint: ABDOMINAL PAIN Notes: 27 y.o female with a PMHx of asthma, migraines and ovarian cysts presents to the ED with continued pelvic pain since her diagnoses with ovarian cysts last April. Pt was seen here two days and all labs were normal and had a transvaginal ultrasound with normal findings. Pt also reports dysuria, dizziness , nausea and diaphoresis. Pt denies having any fevers, discharge or vaginal odors, pain with intercourse or pain with defecation. Pt reports last menstrual period December 26 2017. She denies heavy periods but states that she feels her pelvic pain regularly worsens about a week before her period. Pt reports a PAP smear last year in April which showed ovarian cysts but was otherwise was normal. (LORENA CARREON) - Related Data Allergies/Adverse Reactions: acetaminophen [From Tylenol] Allergy (Verified 01/14/18 09:24) Past Medical History - General Information source: Patient Last Menstrual Period: - Social History Smoking Status: Never Smoker Chew tobacco use (# tins/day): No Frequency of alcohol use: Occasional Drug Abuse: None Family History: Reviewed & Not Pertinent Patient has suicidal ideation: No Patient has homicidal ideation: No Pulmonary Medical History: Reports: Hx Asthma Neurological Medical History: Reports: Hx Migraine Renal/ Medical History: Reports: Hx Ovarian Cysts. Denies: Hx Peritoneal Dialysis Past Surgical History: Reports: Hx Oral Surgery - Immunizations Hx Diphtheria, Pertussis, Tetanus Vaccination: No Review of Systems - Review of Systems Constitutional: See HPI, Diaphoresis, Other - dizziness. denies: Fever EENT: No symptoms reported Cardiovascular: No symptoms reported Respiratory: No symptoms reported Gastrointestinal: See HPI, Abdominal pain - pelvic pain, Nausea Genitourinary: See HPI, Dysuria Female Genitourinary: See HPI. denies: Vaginal discharge, Vaginal odor, Painful intercourse Musculoskeletal: No symptoms reported Skin: No symptoms reported Hematologic/Lymphatic: No symptoms reported Neurological/Psychological: No symptoms reported -: Yes All other systems reviewed and negative Physical Exam - Notes Notes: Physical Exam: General: Alert, appears well. HEENT: Normocephalic. Atraumatic. PERRL. Extraocular movements intact. Oropharynx clear. Neck: Supple. Non-tender. Respiratory: No respiratory distress. Clear and equal breath sounds bilaterally. Cardiovascular: Regular rate and rhythm. Abdominal: No distension. Normal Bowel Sounds. TTP LLQ and mid pelvic area. Back: Non-tender. No deformity or step off. Extremities: Moves all four extremities. Upper extremities: Normal inspection. Normal ROM. Lower extremities: Normal inspection. No edema. Normal ROM. Neurological: Normal cognition. AAOx3. Normal speech. Psychological: Normal affect. Normal Mood. Skin: Warm. Dry. Normal color. (LORENA CARREON) Course - Re-evaluation Re-evalutation: 01/14/18 10:01 Remarkable workup. She had minor fluid in her uterus and pelvis otherwise no concerning findings. Normal transvaginal ultrasound. STD testing was negative. She did have 4+ white cells. Her lab does not check her clue cells and was there is vaginal culture. Discussed findings with patient. Patient symptoms appear to be chronic in nature. She had Pap smear she states approximately last year with no concerning findings. We will have patient self swab and run vaginal culture to try to detect for bacterial vaginosis. She denies any excessive discharge or smells. However, if culture comes back positive she will be called with prescription of Flagyl. She will be given 5 days of naproxen to see if this helps with her symptoms. If her symptoms continue she is to follow-up with her OB GEN. Return precautions were provided if she begins to experience any worsening of pain vaginal discharge smells or fevers she should return for reevaluation. Of note, she has for work excuse for today upon discharge. (STEVE KWOK) Discharge - Discharge Clinical Impression: Pelvic pain Condition: Good Disposition: HOME, SELF-CARE Additional Instructions: Return precautions were provided verbally. If he experiences any nausea vomiting fevers vaginal discharge was smells or worsening conditions please return to the emergency department. Otherwise, please follow-up with your OB GEN if the symptoms are continuing that as they appear acute on chronic in nature. If vaginal culture shows any concerning findings will be called with results Prescriptions: Naproxen 500 mg PO BID #30 tablet Forms: Return to Work Referrals: SARAH SEE PA-C [Primary Care Provider] - Follow up as needed Scribe Attestation: 01/14/18 20:00 I personally performed the services described documentation, reviewed and edited the documentation which was dictated to describe my presence, and it accurately records my words and actions. (STEVE KWOK) Scribe Documentation - Scribe Written by Gloria:: Gloria Hutchinson 01/14/18 1017 acting as scribe for :: [place]
== END 2018-01-14 10:32 | disposition home or self-care (01) ==
LOC: ER 09:21
DX: R10.2 Pelvic and perineal pain (principal); R30.0 Dysuria; R42 Dizziness and giddiness; R11.0 Nausea; R61 Generalized hyperhidrosis; J45.909 Unspecified asthma, uncomplicated; Z87.42 Personal history of other diseases of the female genital tract; Z88.6 Allergy status to analgesic agent
CPT/HCPCS: 87070; 87077; 87205; 99283

== ENCOUNTER 2018-06-16 08:51 | Emergency (ER) | payer MEDICAID ==
[2018-06-16] MEDS ORDERED: AMOXICILLIN TR/POT CLAVULANATE 500-125 MG TAB PO ONE (09:41)
[2018-06-16] MEDS ORDERED: DIPHENHYDRAMINE HCL 50 MG CAPSULE PO ONE (09:41)
[2018-06-16] MEDS ORDERED: METOCLOPRAMIDE HCL 10 MG TABLET PO ONE (09:41)
[2018-06-16] MEDS ORDERED: KETOROLAC TROMETHAMINE 60 MG/2 ML SDV IM ONE (09:42)
[2018-06-16] MEDS ORDERED: DEXAMETHASONE 4 MG TABLET PO ONE (09:43)
--- NOTE | 2018-06-16 09:48 | ER Document Report ---
ED General - General Chief Complaint: Flu Symptoms Stated Complaint: THROAT/EAR PAIN Time Seen by Provider: 06/16/18 09:27 Mode of Arrival: Ambulatory Information source: Patient, [facility] Records Notes: 27-year-old female with history of asthma presents with multiple vague complaints including body aches, right ear pain, right-sided throat pain, right- sided headache. Patient reports a subjective fever at home yesterday. She states that symptoms started yesterday. She has tried NyQuil well without relief. She denies any nausea, vomiting, cough, abdominal pain, diarrhea, sick contacts, dysuria. TRAVEL OUTSIDE OF THE [place] IN LAST 30 DAYS: No - HPI Onset: Yesterday Onset/Duration: Gradual, Persistent Quality of pain: Achy, Throbbing Severity: Moderate Associated symptoms: Earache, Headache, Sore throat. denies: Chest pain, Chills , Nonproductive cough, Productive cough, Diarrhea, Drooling, Hurts to breath, Nausea, Vomiting, Rhinnorhea, Shortness of breath Exacerbated by: Other - Swallowing Relieved by: Denies Similar symptoms previously: No Recently seen / treated by doctor: No - Related Data Allergies/Adverse Reactions: acetaminophen [From Tylenol] Allergy (Verified 06/16/18 09:01) Past Medical History - General Information source: Patient, [facility] Records - Social History Smoking Status: Never Smoker Chew tobacco use (# tins/day): No Frequency of alcohol use: Social Drug Abuse: None Lives with: Family Family History: Reviewed & Not Pertinent Patient has suicidal ideation: No Patient has homicidal ideation: No Pulmonary Medical History: Reports: Hx Asthma Neurological Medical History: Reports: Hx Migraine Renal/ Medical History: Reports: Hx Ovarian Cysts. Denies: Hx Peritoneal Dialysis Past Surgical History: Reports: Hx Oral Surgery - Immunizations Hx Diphtheria, Pertussis, Tetanus Vaccination: No Review of Systems - Review of Systems Notes: REVIEW OF SYSTEMS: CONSTITUTIONAL : Denies fever, chills, or sweats. Denies recent illness. Denies weight loss, recent hospitalizations. EENT: Denies visual changes, eye pain. Denies oral lesions, difficulty swallowing. CARDIOVASCULAR: Denies chest pain. Denies palpitations. Denies lower extremity edema. RESPIRATORY: Denies cough. Denies shortness of breath, wheezing. GASTROINTESTINAL: Denies abdominal pain or distention. Denies nausea, vomiting , or diarrhea. Denies blood in vomitus, stools, or per rectum. Denies black, tarry stools. Denies constipation. GENITOURINARY: Denies difficulty urinating, painful urination, frequency, blood in urine, or vaginal discharge. MUSCULOSKELETAL: Denies back or neck pain or stiffness. Denies joint pain or swelling. SKIN: Denies rash, lesions or sores. HEMATOLOGIC : Denies easy bruising or bleeding. LYMPHATIC: Denies swollen glands. NEUROLOGICAL: Denies confusion or altered mental status. Denies loss of consciousness. Denies dizziness or lightheadedness. Denies headache. Denies weakness or paralysis. Denies problems difficulty with ambulation, slurred speech. Denies sensory loss, numbness, or tingling. Denies seizures. PSYCHIATRIC: Denies anxiety or stress. Denies depression, suicidal ideation, or homicidal ideation. Denies visual or auditory hallucinations. Physical Exam - Vital signs Vitals: Temp Pulse Resp BP Pulse Ox 98.8 F 106 H 18 121/74 98 06/16/18 09:05 06/16/18 09:05 06/16/18 09:05 06/16/18 09:05 06/16/18 09:05 - Notes Notes: PHYSICAL EXAMINATION: GENERAL: Well-appearing, well-nourished and in no acute distress. HEAD: Atraumatic, normocephalic. EYES: Pupils equal round and reactive to light, extraocular movements intact, conjunctiva are normal. ENT: Nares patent, symmetric tonsillar swelling, with associated erythema and exudates. Right TM- bulging, erythematous. Moist mucous membranes. NECK: Normal range of motion, positive anterior cervical lymphadenopathy. No meningismus. No nuchal rigidity LUNGS: Breath sounds clear to auscultation bilaterally and equal. No wheezes rales or rhonchi. HEART: Regular rate and rhythm without murmurs ABDOMEN: Soft, nontender, nondistended abdomen. No guarding, no rebound. No masses appreciated. Female : deferred Musculoskeletal: Normal range of motion, no pitting or edema. No cyanosis. NEUROLOGICAL: Cranial nerves grossly intact. Normal speech, normal gait. Normal sensory, motor exams PSYCH: Normal mood, normal affect. SKIN: Warm, Dry, normal turgor, no rashes or lesions noted. Course - Re-evaluation Re-evalutation: 06/16/18 09:47 Presentation of 2 days of sore throat in an otherwise well-appearing patient. Centor score 3. History and exam are not consistent with a retropharyngeal abscess or peritonsillar abscess. Airway is patent. No difficulty handling oral secretions. Vitals within normal limits. Patient will receive Augmentin. At this time will discharge with return precautions and follow-up recommendations. Verbal discharge instructions given a the bedside and opportunity for questions given. Medication warnings reviewed. Patient is in agreement with this plan and has verbalized understanding of return precautions and the need for primary care follow-up in the next 3-5 days. Patient reported improvement of her body aches, headache after receiving Toradol, Decadron, Augmentin. 06/16/18 09:49 06/16/18 10:30 - Vital Signs Vital signs: Temp Pulse Resp BP Pulse Ox 98.7 F 80 18 116/68 98 06/16/18 10:34 06/16/18 10:34 06/16/18 10:34 06/16/18 10:34 06/16/18 10:34 Discharge - Discharge Clinical Impression: Myalgia Pharyngitis Qualifiers: Pharyngitis/tonsillitis etiology: other specified organisms Qualified Code(s): J02.8 - Acute pharyngitis due to other specified organisms Headache Qualifiers: Headache type: unspecified Headache chronicity pattern: unspecified pattern Intractability: not intractable Qualified Code(s): R51 - Headache Otitis media Qualifiers: Otitis media type: unspecified Laterality: right Qualified Code(s): H66.91 - Otitis media, unspecified, right ear Condition: Good Disposition: HOME, SELF-CARE Instructions: Headache ([facility]), Otitis Media ([facility]), Sore Throat ([facility]), Viral Syndrome ([facility]) Additional Instructions: You have been diagnosed with strep throat based on your physical exam. You were given and will be prescribed Augmentin. You have also been given a dose of steroids to help with your throat discomfort. Please continue to take ibuprofen 600 mg every 6 hours or Tylenol 1000 mg every 6 hours as needed for throat discomfort. You can also gargle with salt water. Continue to drink plenty of fluids. Complete your full course of antibiotics. Throw away your toothbrush. Follow-up with your primary care doctor in the next several days. Return if you become unable to swallow, have difficulty breathing, pass out, have persistent vomiting that prevents you from being able to tolerate fluids, or have any other symptoms that are concerning to you. Prescriptions: Amox Tr/Potassium Clavulanate [Augmentin 875-125 Tablet] 1 tab PO BID 10 Days # 20 tablet Ibuprofen [Motrin 600 Mg Tablet] 600 mg PO TID #15 tablet Pseudoephedrine HCl [Sudafed 12 Hour] 120 mg PO BID 5 Days #10 tablet.er Forms: Return to Work Referrals: SARAH SEE PA-C [Primary Care Provider] - Follow up as needed
[2018-06-16 10:35] VITALS: BP 116/68
== END 2018-06-16 10:35 | disposition home or self-care (01) ==
LOC: ER 08:51
DX: H92.01 Otalgia, right ear (principal); J02.9 Acute pharyngitis, unspecified; H66.91 Otitis media, unspecified, right ear; R51 Headache; M79.10 Myalgia, unspecified site; J45.909 Unspecified asthma, uncomplicated; Z88.6 Allergy status to analgesic agent
CPT/HCPCS: 99283; 96372; J3490 ×4; J1885

== ENCOUNTER 2019-07-15 14:15 | Emergency (ER) | payer SELFPAY ==
[2019-07-15 14:20] VITALS: BP 129/76
--- NOTE | 2019-07-15 14:48 | ER Document Report ---
HPI - HPI Time Seen by Provider: 07/15/19 14:44 Notes: Patient is a 28-year-old female who presents to the ED complaining of nasal congestion/discharge, dry nonproductive cough, fever, body ache 2 days. Patient states that she is still eating and drinking without difficulties, but does have a decreased p.o. intake. She is still urinating normally having normal bowel movements. Patient has been using some [id number] meds for symptoms. She denies any significant past medical history including cardiopulmonary history and immunocompromised conditions. Patient denies any smoking or IV drug use. Patient requesting work note. Denies any current headache, neck pain, sore throat, chest pain, palpitations, syncope, shortness of breath, wheeze, dyspnea, abdominal pain, nausea/vomiting/diarrhea, urinary retention, dysuria, hematuria, or rash. - ROS Systems Reviewed and Negative: Yes All other systems reviewed and negative - REPRODUCTIVE Reproductive: DENIES: : Past Medical History - Social History Smoking Status: Never Smoker Family History: Reviewed & Not Pertinent Pulmonary Medical History: Reports: Hx Asthma Neurological Medical History: Reports: Hx Migraine Renal/ Medical History: Reports: Hx Ovarian Cysts. Denies: Hx Peritoneal Dialysis Past Surgical History: Reports: Hx Oral Surgery - Immunizations Hx Diphtheria, Pertussis, Tetanus Vaccination: No Vertical Provider Document - CONSTITUTIONAL Agree With Documented VS: Yes Notes: PHYSICAL EXAMINATION: GENERAL: Well-appearing, well-nourished and in no acute distress. A&Ox4. Answers questions appropriately. Moves comfortably w/o notable distress HEAD: Atraumatic, normocephalic. EYES: Pupils equal round and reactive to light, extraocular movements intact, sclera anicteric, conjunctiva are normal. ENT: Nares patent and with clear discharge. oropharynx no erythema without exudates. No tonsilar hypertrophy without erythema or exudate. No palatine shift. Uvula midline. No tongue protrusion. No drooling, hoarseness, or airway compromise. Moist mucous membranes. No sinus tenderness. NECK: Normal range of motion, supple without lymphadenopathy. No rigidity/meningismus. LUNGS: Breath sounds clear to auscultation bilaterally and equal. No wheezes rales or rhonchi. No retractions HEART: Regular rate and rhythm without murmurs, rubs, gallops. ABDOMEN: Soft, nontender, nondistended abdomen. No guarding, no rebound. Normal bowel sounds present. No CVA tenderness bilaterally. NEUROLOGICAL: Normal speech, normal gait. PSYCH: Normal mood, normal affect. SKIN: Warm, Dry, normal turgor, no rashes or lesions noted. - INFECTION CONTROL TRAVEL OUTSIDE OF THE [place] IN LAST 30 DAYS: No Course - Re-evaluation Re-evalutation: 07/15/19 14:47 Patient is an afebrile, well-hydrated, 28-year-old female who presents to the ED with acute URI, suspect viral/influenza. Vitals are acceptable. PE is otherwise unremarkable. No labs or imaging warranted at this time based on H&P. Patient has no significant cardiopulmonary or immunocompromised medical conditions. Patient's lungs are clear to auscultation bilaterally without tachycardia, hypoxia, or tachypnea. Patient is tolerating p.o. without any difficulties. Thoroughly reviewed the risks, benefits, potential side effects, estimated cost without insurance with patient. After thorough review, patient declined Tamiflu at this time. Low suspicion for any meningitis, sepsis, peritonsillar/pharyngeal abscess, respiratory compromise, severe dehydration, or other emergent systemic condition at this time. Patient is aware this condition can change from initial presentation and she needs to monitor symptoms closely. Conservative measures otherwise for symptoms. Recheck with your PCM in 3-5 days. Return to the ED with any worsening/concerning symptoms otherwise as reviewed in discharge. Patient is in agreement. - Vital Signs Vital signs: Temp Pulse Resp BP Pulse Ox 98.1 F 90 20 129/76 H 100 07/15/19 14:19 07/15/19 14:19 07/15/19 14:19 07/15/19 14:19 07/15/19 14:19 Discharge - Discharge Clinical Impression: Acute URI Condition: Stable Disposition: HOME, SELF-CARE Instructions: Upper Respiratory Illness ([facility]) Additional Instructions: Maintain adequate fluid intake tylenol/ibuprofen as needed alternating every 3 hours for fever/body ache over the counter cold medication as needed for symptoms Humidified air may help Wash your hands regularly Wear a mask when coughing F/u: with your PCM in 3-5 days for a recheck Return to the ED with any fever, altered mental status/behavior, chest pain, palpitations, syncope, headache, neck pain/stiffness, shortness of breath, chest pains, wheezing, drooling, trouble swallowing/breathing, abdominal pain, n/v/d, rash, or worsening/concerning symptoms otherwise. Forms: Elevated Blood Pressure, Return to Work Referrals: SARAH SEE PA-C [Primary Care Provider] - Follow up as needed
== END 2019-07-15 14:50 | disposition home or self-care (01) ==
LOC: ER 14:15
DX: J06.9 Acute upper respiratory infection, unspecified (principal); R09.81 Nasal congestion; R09.89 Other specified symptoms and signs involving the circulatory and respiratory systems; R05 Cough; R50.9 Fever, unspecified; R52 Pain, unspecified; J45.909 Unspecified asthma, uncomplicated
CPT/HCPCS: 99282

== ENCOUNTER 2020-05-25 18:18 | Emergency (ER) | payer SELFPAY ==
--- NOTE | 2020-05-25 19:21 | ER Document Report ---
ED Medical Screen (RME) - General Stated Complaint: HEADACHE Time Seen by Provider: 05/25/20 19:14 Primary Care Provider: SARAH SEE PA-C [Primary Care Provider] - Follow up as needed Mode of Arrival: Ambulatory Information source: Patient Notes: HPI; 29-year-old female presents to the emergency room complaining of a headache, general body aches, fatigue for the past 2 days. Taking NyQuil and ibuprofen with minimal relief. A coworker has recently tested positive for Covid however patient states she is not had any direct contact with that coworker. No other known ill contacts. PE: Alert and oriented x3. Lungs: Clear to auscultation without rales, rhonchi, wheezes. Heart: Regular rate rhythm without murmurs, rubs, gallops. Patient was evaluated during the global COVID-19 pandemic and that diagnosis was suspected/considered upon their initial presentation. Their evaluation, treatment and testing was consistent with current guidelines for patients who presents with complaints or systems that may be related to COVID-19. I have greeted and performed a rapid initial assessment of this patient. A comprehensive ED assessment and evaluation of the patient, analysis of test results and completion of the medical decision making process will be conducted by additional ED providers. I have specifically instructed the patient or family members with the patient to immediately return to any nursing staff should anything change in the patient's condition or with their chief complaint. TRAVEL OUTSIDE OF THE [place] IN LAST 30 DAYS: No - Related Data Allergies/Adverse Reactions: acetaminophen [From Tylenol] Allergy (Verified 06/16/18 09:01) Past Medical History Pulmonary Medical History: Reports: Hx Asthma Neurological Medical History: Reports: Hx Migraine Renal/ Medical History: Reports: Hx Ovarian Cysts. Denies: Hx Peritoneal Dialysis Past Surgical History: Reports: Hx Oral Surgery - Immunizations Hx Diphtheria, Pertussis, Tetanus Vaccination: No Physical Exam - Vital signs Vitals: Temp Pulse Resp BP Pulse Ox 98.5 F 76 16 141/78 H 100 05/25/20 18:24 05/25/20 18:24 05/25/20 18:24 05/25/20 18:24 05/25/20 18:24 Course - Vital Signs Vital signs: Temp Pulse Resp BP Pulse Ox 98.5 F 76 16 141/78 H 100 05/25/20 18:24 05/25/20 18:24 05/25/20 18:24 05/25/20 18:24 05/25/20 18:24 Doctor's Discharge - Discharge Referrals: SARAH SEE PA-C [Primary Care Provider] - Follow up as needed
--- NOTE | 2020-05-25 20:00 | RADIOLOGY REPORT (SQ) ---
EXAM DESCRIPTION: CHEST 2 VIEWS IMAGES COMPLETED DATE/TIME: 05/25/2020 7:41 pm REASON FOR STUDY: cough COMPARISON: 01/18/2012 EXAM PARAMETERS: NUMBER OF VIEWS: two views TECHNIQUE: Digital Frontal and Lateral radiographic views of the chest acquired. RADIATION DOSE: NA LIMITATIONS: none FINDINGS: LUNGS AND PLEURA: No opacities, masses or pneumothorax. No pleural effusion. MEDIASTINUM AND HILAR STRUCTURES: No masses or contour abnormalities. HEART AND VASCULAR STRUCTURES: Heart normal size. No evidence for failure. BONES: No acute findings. HARDWARE: None in the chest. OTHER: No other significant finding. IMPRESSION: NO ACUTE RADIOGRAPHIC FINDING IN THE CHEST. TECHNICAL DOCUMENTATION: JOB ID: [id number] 2010 [employer]- All Rights Reserved Reading location - IP/workstation name: [email or web address]
[2020-05-25 20:35] LABS: ABSOLUTE BASOPHILS # (AUTO) 0.1 10^3/uL (0.0-0.2); ABSOLUTE EOSINOPHILS # (AUTO) 0.1 10^3/uL (0.0-0.6); ABSOLUTE LYMPHOCYTES (AUTO) 2.5 10^3/uL (0.5-4.7); ABSOLUTE MONOCYTES (AUTO) 0.8 10^3/uL (0.1-1.4); ABSOLUTE NEUT (AUTO) 5.4 10^3/uL (1.7-8.2); BASOPHILS % (AUTO) 0.6 % (0-2); EOSINOPHILS % (AUTO) 1.6 % (0-6); HEMATOCRIT 43.3 % (36.0-47.0); HEMOGLOBIN 14.3 g/dL (12.0-15.5); MEAN CORPUSCULAR HEMOGLOBIN 27.2 pg (27.0-33.4); MEAN CORPUSCULAR VOLUME 82 fl (80-97); MONOCYTES % (AUTO) 9.4 % (3-13); PLATELET COUNT 484 10^3/uL (150-450); RED BLOOD COUNT 5.25 10^6/uL (3.72-5.28); RED CELL DISTRIBUTION WIDTH 13.7 % (11.5-14.0); SEGMENTED NEUTROPHILS % (AUTO) 60.4 % (42-78); TOTAL CELLS COUNTED % (AUTO) 100 %
[2020-05-25 20:47] LABS: ALBUMIN 5.2 g/dL (3.5-5.0); ALKALINE PHOSPHATASE 72 U/L (38-126); ANION GAP 14 (5-19); ASPARTATE AMINO TRANSFERASE 26 U/L (14-36); BILIRUBIN,DIRECT 0.1 mg/dL (0.0-0.4); BILIRUBIN,TOTAL 0.5 mg/dL (0.2-1.3); BLOOD UREA NITROGEN 11 mg/dL (7-20); CALCIUM 10.7 mg/dL (8.4-10.2); CARBON DIOXIDE 23 mmol/L (22-30); CHLORIDE 100 mmol/L (98-107); GLUCOSE 94 mg/dL (75-110); POTASSIUM 4.5 mmol/L (3.6-5.0); TOTAL PROTEIN 9.6 g/dL (6.3-8.2)
[2020-05-25] MEDS ORDERED: DEXAMETHASONE SOD PHOS INJ 10 MG/1 ML VIAL IM ONE (21:43)
--- NOTE | 2020-05-25 21:49 | ER Document Report ---
ED General - General Chief Complaint: Headache Stated Complaint: HEADACHE Time Seen by Provider: 05/25/20 19:14 Primary Care Provider: SARAH SEE PA-C [Primary Care Provider] - Follow up as needed Mode of Arrival: Ambulatory Notes: Patient is a 29-year-old female comes emergency department for chief complaint of body aches, sinus congestion and pressure, fatigue, and intermittent headaches for the past 2 days. She denies shortness of breath, cough, fever/chills. She reports throat irritation but not soreness. She has been taking NyQuil and ibuprofen. She states she partied hard at a [employer] party for the past 2 nights. She states she was possibly exposed to COVID-19 with a coworker as well. She denies any daily medications. She reports she previously had asthma as a child but has not had any problems as an adult. She denies smoking. She denies recreational drugs. TRAVEL OUTSIDE OF THE [place] IN LAST 30 DAYS: No - Related Data Allergies/Adverse Reactions: acetaminophen [From Tylenol] Allergy (Verified 06/16/18 09:01) Past Medical History - General Information source: Patient - Social History Smoking Status: Never Smoker Frequency of alcohol use: None Drug Abuse: None Lives with: Family Family History: Reviewed & Not Pertinent Pulmonary Medical History: Reports: Hx Asthma Neurological Medical History: Reports: Hx Migraine Renal/ Medical History: Reports: Hx Ovarian Cysts. Denies: Hx Peritoneal Dialysis Past Surgical History: Reports: Hx Oral Surgery - Immunizations Immunizations up to date: Yes Hx Diphtheria, Pertussis, Tetanus Vaccination: Yes Review of Systems - Review of Systems Constitutional: See HPI EENT: No symptoms reported Cardiovascular: No symptoms reported Respiratory: No symptoms reported Gastrointestinal: No symptoms reported Genitourinary: No symptoms reported Female Genitourinary: No symptoms reported Musculoskeletal: See HPI Skin: No symptoms reported Hematologic/Lymphatic: No symptoms reported Neurological/Psychological: See HPI Physical Exam - Vital signs Vitals: Temp Pulse Resp BP Pulse Ox 98.5 F 76 16 141/78 H 100 05/25/20 18:24 05/25/20 18:24 05/25/20 18:24 05/25/20 18:24 05/25/20 18:24 - Notes Notes: GENERAL: Alert, interacts well. No acute distress. HEAD: Normocephalic, atraumatic. EYES: Pupils equal, round, and reactive to light. Extraocular movements intact. ENT: Oral mucosa moist, tongue midline. Oropharynx unremarkable. Airway patent. Nares patent, sinuses non-tender, ear canals unremarkable, TM's intact. NECK: Full range of motion. Supple. Trachea midline. No lymphadenopathy. LUNGS: Clear to auscultation bilaterally, no wheezes, rales, or rhonchi. No respiratory distress. Non-tender chest wall. HEART: Regular rate and rhythm. No murmur ABDOMEN: Soft, non-tender. Non-distended. EXTREMITIES: Moves all 4 extremities spontaneously. No edema, normal radial and dorsalis pedis pulses bilaterally. No cyanosis. BACK: no cervical, thoracic, lumbar midline tenderness. No saddle anesthesia, normal distal neurovascular exam. Moves all extremities in full range of motion. NEUROLOGICAL: Alert and oriented x3. Normal speech. Cranial nerves II through XII grossly intact. Strength 5/5 in all extremities. PSYCH: Normal affect, normal mood. SKIN: Warm, dry, normal turgor. No rashes or lesions noted. Course - Re-evaluation Re-evalutation: Patient is smiling and talkative, she is well-appearing and alert. Physical exam is completely unremarkable. Clear lungs, no nuchal rigidity, unremarkable ENT exam. Unremarkable vital signs. CBC, chemistry, test, reviewed from triage without any remarkable findings. COVID-19 test has already been performed and pending. Patient states she just wants "a shot of something to help me feel better". She does have possible exposure to COVID-19. Patient was given dexamethasone. No concerning findings on evaluation. Patient will be discharged, discussed quarantine, expectations, follow-up, return precautions. Patient states understanding and agreement. - Vital Signs Vital signs: Temp Pulse Resp BP Pulse Ox 98.5 F 84 18 127/82 H 100 05/25/20 18:24 05/25/20 22:00 05/25/20 22:00 05/25/20 22:00 05/25/20 22:00 - Laboratory Result Diagrams: 05/25/20 20:00 05/25/20 20:00 Laboratory results interpreted by me: 05/25/20 05/25/20 20:00 20:00 Plt Count 484 H Sodium 136.7 L Calcium 10.7 H Total Protein 9.6 H Albumin 5.2 H Discharge - Discharge Clinical Impression: Person under investigation for COVID-19, Body aches, Sinus congestion Condition: Stable Disposition: HOME, SELF-CARE Additional Instructions: You have been treated with dexamethasone for your symptoms. Consider over-the- counter medication such as Zyrtec and Flonase for sinus pressure. Consider Tylenol and ibuprofen for body aches and pain. Drink plenty of fluids and rest. Please quarantine while you are awaiting your COVID-19 test results, you will be contacted with results, see additional details below. Follow-up with primary care. Return if you worsen including spiking fevers, difficulty breathing, severe headache, vomiting, or any other concerning symptoms. As a person under investigation for COVID-19, the [place] Department of Health and Human Services (division on public health) advises you to adhere to the following guidance until your test results are reported to you. If your test result is positive, you will receive additional information from your provider and your local health department at that time. Remain at home until you are cleared by the health provider or public health authorities. Keep a log of visitors to your home, notify any visitors to your [facility] of your isolation status. If you plan to move to a new address or leave the [facility], notify the local health department in your County. Call your Doctor or seek care if you have an urgent medical need. Before seeking medical care, call him to get instructions from the provider before arriving at the medical office, clinic, or hospital. Notify them that you are being tested for the virus (COVID-19) so that arrangements can be made, as necessary, to prevent transmission to others in the healthcare setting. Next, notify the local health department in your county. If a medical emergency arises and you need to call 911, inform the first responders that you are being tested for the virus that causes COVID-19. Next, notify the local health department in your county. Forms: Return to Work Referrals: SARAH SEE PA-C [Primary Care Provider] - Follow up as needed
[2020-05-25] MEDS ORDERED: DEXAMETHASONE SOD PHOSPHATE INJ 4 MG/1 ML VIAL ONE (21:54)
[2020-05-25 22:05] VITALS: BP 127/82
[2020-05-25] MEDS ORDERED: DEXAMETHASONE SOD PHOSPHATE INJ 4 MG/1 ML VIAL IM ONE (22:30)
== END 2020-05-25 22:05 | disposition home or self-care (01) ==
LOC: ER 18:18
DX: R51.9 Headache, unspecified (principal); R09.89 Other specified symptoms and signs involving the circulatory and respiratory systems; R53.83 Other fatigue; Z88.8 Allergy status to other drugs, medicaments and biological substances; Z20.828 Contact with and (suspected) exposure to other viral communicable diseases
CPT/HCPCS: 99284; 96372; 36415; 84703; 85025; 87635; 80053; 71046; J1100; C9803